=== PATIENT | female | born 1965 | race Caucasian/White ===

== ENCOUNTER 2016-10-12 12:47 | Emergency (ER) | payer MEDICARE, OTHER ==
[2016-10-12] MEDS ORDERED: SODIUM CHLORIDE 0.9% 500 ML IV STA (13:13)
[2016-10-12] MEDS ORDERED: SODIUM CHLORIDE 0.9% 1,000 ML IV STA (13:13)
--- NOTE | 2016-10-12 13:20 | ED ---
General Adult HPI - General Stated complaint: High white count Time Seen by Provider: 10/12/16 13:12 Source: RN notes reviewed, old records reviewed - History of Present Illness Initial comments: This is a 41 and this is a 50-year-old female here for evaluation. This patient comes in for evaluation of weakness, outpatient evaluation, patient's family doctor. Patient denies medical history. Patient was sent in by her family doctor for evaluation of abnormal lab test. - Related Data Home Medications Medication Instructions Recorded Confirmed ALPRAZolam [Xanax] 1 mg PO TID 10/12/16 10/12/16 Atorvastatin Calcium [Lipitor] 10 mg PO HS 10/12/16 10/12/16 Clopidogrel [Plavix] 75 mg PO DAILY 10/12/16 10/12/16 Docusate [Colace] 100 mg PO BID PRN 10/12/16 10/12/16 Ferrous Sulfate [Feosol] 325 mg PO BID 10/12/16 10/12/16 Morphine Sulfate ER [Ms Contin 30 mg PO Q12H 10/12/16 10/12/16 30Mg] Omeprazole 20 mg PO DAILY 10/12/16 10/12/16 Unknown Wound Cream 1 applic TOPICAL DAILY 10/12/16 10/12/16 amLODIPine [Norvasc] 10 mg PO DAILY 10/12/16 10/12/16 metFORMIN HCL [Glucophage] 500 mg PO BID 10/12/16 10/12/16 oxyCODONE-APAP 10-325MG [Percocet 1 tab PO Q4-6H PRN 10/12/16 10/12/16 10-325 mg] Allergies Allergy/AdvReac Type Severity Reaction Status Date / Time No Known Allergies Allergy Verified 10/12/16 15:06 Review of Systems ROS Statement: Those systems with pertinent positive or pertinent negative responses have been documented in the HPI. ROS Other: All systems not noted in ROS Statement are negative. Past Medical History Past Medical History: Diabetes Mellitus, Hypertension Additional Past Medical History / Comment(s): Occlusive vessel disease History of Any Multi-Drug Resistant Organisms: None Reported Past Surgical History: Back Surgery, Section Past Psychological History: No Psychological Hx Reported Smoking Status: Former smoker Past Alcohol Use History: None Reported Past Drug Use History: None Reported General Exam General appearance: alert, in no apparent distress Head exam: Present: atraumatic, normocephalic, normal inspection Eye exam: Present: normal appearance, PERRL, EOMI. Absent: scleral icterus, conjunctival injection, periorbital swelling ENT exam: Present: normal exam, mucous membranes moist Neck exam: Present: normal inspection. Absent: tenderness, meningismus, lymphadenopathy Respiratory exam: Present: normal lung sounds bilaterally. Absent: respiratory distress, wheezes, rales, rhonchi, stridor Cardiovascular Exam: Present: regular rate, normal rhythm, normal heart sounds. Absent: systolic murmur, diastolic murmur, rubs, gallop, clicks GI/Abdominal exam: Present: soft, normal bowel sounds. Absent: distended, tenderness, guarding, rebound, rigid Extremities exam: Present: normal inspection, full ROM, normal capillary refill. Absent: tenderness, pedal edema, joint swelling, calf tenderness Back exam: Present: normal inspection Neurological exam: Present: alert, oriented X3, CN II-XII intact Psychiatric exam: Present: normal affect, normal mood Skin exam: Present: warm, dry, intact, normal color. Absent: rash Course Vital Signs 10/12/16 10/12/16 13:26 15:55 Temperature 98.9 F 98.4 F Pulse Rate 67 89 Respiratory 18 18 Rate Blood Pressure 209/89 156/76 O2 Sat by Pulse 98 97 Oximetry - Reevaluation(s) Reevaluation #1: 10/12/16 13:20 Sheryl spoke with family doctor, patient does have abnormal lab tests, elevated white count, Reevaluation #2: Patient has no complaints, unhappy to be in the hospital at this time, states she's had a long complicated recent medical history is spent more time and also should like to EKG Findings - EKG Comments: EKG Findings:: EKG shows sinus tach rate of 102, MS 160, QRS 76, QTC 448 Medical Decision Making - Medical Decision Making 50 female here for evaluation of possible abdominal abscess leukocytosis, patient's white count appears to be normal here in the emergency room. Patient herself has no complaints would like to be discharged home - Lab Data Result diagrams: 10/12/16 14:10 10/12/16 15:03 Lab Results 10/12/16 10/12/16 10/12/16 Range/Units 14:10 15:03 15:03 WBC 12.6 H (3.8-10.6) k/uL RBC 4.65 (3.80-5.40) m/uL Hgb 13.4 (11.4-16.0) gm/dL Hct 42.0 (34.0-46.0) % MCV 90.4 (80.0-100.0) fL MCH 28.8 (25.0-35.0) pg MCHC 31.8 (31.0-37.0) g/dL RDW 14.1 (11.5-15.5) % Plt Count 314 (150-450) k/uL Neutrophils % 70 % Lymphocytes % 17 % Monocytes % 4 % Eosinophils % 5 % Basophils % 1 % Neutrophils # 8.9 H (1.3-7.7) k/uL Lymphocytes # 2.2 (1.0-4.8) k/uL Monocytes # 0.5 (0-1.0) k/uL Eosinophils # 0.6 (0-0.7) k/uL Basophils # 0.1 (0-0.2) k/uL PT 10.7 (9.0-12.0) sec INR 1.1 (<1.1) APTT 21.9 L (22.0-30.0) sec Sodium 142 (137-145) mmol/L Potassium 4.2 (3.5-5.1) mmol/L Chloride 110 H (98-107) mmol/L Carbon Dioxide 21 L (22-30) mmol/L Anion Gap 11 mmol/L BUN 21 H (7-17) mg/dL Creatinine 0.50 L (0.52-1.04) mg/dL Est GFR (MDRD) Af Amer >60 (>60 ml/min/1.73 sqM) Est GFR (MDRD) Non-Af >60 (>60 ml/min/1.73 sqM) Glucose 203 H (74-99) mg/dL Plasma Lactic Acid Alexandr (0.7-2.0) mmol/L Calcium 9.4 (8.4-10.2) mg/dL Phosphorus 3.3 (2.5-4.5) mg/dL Magnesium 1.3 L (1.6-2.3) mg/dL Total Bilirubin 0.4 (0.2-1.3) mg/dL AST 25 (14-36) U/L ALT 34 (9-52) U/L Alkaline Phosphatase 127 H (38-126) U/L Total Creatine Kinase (30-135) U/L CK-MB (CK-2) (0.0-2.4) ng/mL CK-MB (CK-2) Rel Index Troponin I (0.000-0.034) ng/mL Total Protein 7.9 (6.3-8.2) g/dL Albumin 3.9 (3.5-5.0) g/dL Lipase 216 (23-300) U/L Serum Alcohol <10 mg/dL Acetone, Qual Negative (Negative) 10/12/16 10/12/16 Range/Units 15:03 15:03 WBC (3.8-10.6) k/uL RBC (3.80-5.40) m/uL Hgb (11.4-16.0) gm/dL Hct (34.0-46.0) % MCV (80.0-100.0) fL MCH (25.0-35.0) pg MCHC (31.0-37.0) g/dL RDW (11.5-15.5) % Plt Count (150-450) k/uL Neutrophils % % Lymphocytes % % Monocytes % % Eosinophils % % Basophils % % Neutrophils # (1.3-7.7) k/uL Lymphocytes # (1.0-4.8) k/uL Monocytes # (0-1.0) k/uL Eosinophils # (0-0.7) k/uL Basophils # (0-0.2) k/uL PT (9.0-12.0) sec INR (<1.1) APTT (22.0-30.0) sec Sodium (137-145) mmol/L Potassium (3.5-5.1) mmol/L Chloride (98-107) mmol/L Carbon Dioxide (22-30) mmol/L Anion Gap mmol/L BUN (7-17) mg/dL Creatinine (0.52-1.04) mg/dL Est GFR (MDRD) Af Amer (>60 ml/min/1.73 sqM) Est GFR (MDRD) Non-Af (>60 ml/min/1.73 sqM) Glucose (74-99) mg/dL Plasma Lactic Acid Alexandr 1.3 (0.7-2.0) mmol/L Calcium (8.4-10.2) mg/dL Phosphorus (2.5-4.5) mg/dL Magnesium (1.6-2.3) mg/dL Total Bilirubin (0.2-1.3) mg/dL AST (14-36) U/L ALT (9-52) U/L Alkaline Phosphatase (38-126) U/L Total Creatine Kinase 26 L (30-135) U/L CK-MB (CK-2) 1.1 (0.0-2.4) ng/mL CK-MB (CK-2) Rel Index 4.2 Troponin I 0.089 H* (0.000-0.034) ng/mL Total Protein (6.3-8.2) g/dL Albumin (3.5-5.0) g/dL Lipase (23-300) U/L Serum Alcohol mg/dL Acetone, Qual (Negative) - Radiology Data Radiology results: report reviewed (X-ray left lower extremities negative for acute disease, no gas no air), image reviewed Disposition Clinical Impression: Encounter for wound re-check Disposition: HOME SELF-CARE Condition: Good Instructions: Leukocytosis (ED) Referrals: Hilaria Thakkar MD [Primary Care Provider] - 1-2 days
[2016-10-12 13:31] VITALS: RESP 18
[2016-10-12 14:19] LABS: Basophils # (A) 0.1 k/uL (0-0.2); Basophils % (A) 1 %; CH 29.4; CHCM 32.6; Eosinophils # (A) 0.6 k/uL (0-0.7); Eosinophils % (A) 5 %; HDW 2.55; HGB 13.4 gm/dL (11.4-16.0); Luc # (Auto) 0.31; Luc % (Auto) 3; Lymphocytes # (A) 2.2 k/uL (1.0-4.8); Lymphocytes % (A) 17 %; MCH 28.8 pg (25.0-35.0); MCHC 31.8 g/dL (31.0-37.0); MCV 90.4 fL (80.0-100.0); Mean Platelet Volume 7.6; Monocytes # (A) 0.5 k/uL (0-1.0); Monocytes % (A) 4 %; Neutrophils # (A) 8.9 k/uL (1.3-7.7); Neutrophils % (A) 70 %; RBC 4.65 m/uL (3.80-5.40); RDW 14.1 % (11.5-15.5); WBC 12.6 k/uL (3.8-10.6); WBC (Perox) 12.65
[2016-10-12] MEDS ORDERED: ONDANSETRON 4 MG/2 ML VIAL IVP STA (14:34)
[2016-10-12] MEDS ORDERED: MORPHINE SULFATE 4 MG/ML SYRINGE IVP STA (14:34)
[2016-10-12] MEDS ORDERED: diphenhydrAMINE 50 MG/ML 1 ML VIAL IVP STA (15:08)
--- NOTE | 2016-10-12 15:08 | XR ---
EXAMINATION TYPE: XR tibia fibula LT DATE OF EXAM: 10/12/2016 2:57 PM CLINICAL HISTORY: Fever, pain, leukocytosis. TECHNIQUE: Two views of the left leg are obtained. COMPARISON: None. FINDINGS: There is overlying gauze or bandage material seen which is noted to lower radiographic sen sitivity for evaluation of fine anatomic detail. There is no acute fracture or dislocation seen in th e left tibia or fibula. No suspicious cortical destruction or periosteal reaction is seen. The left k nee and ankle joints appear within normal limits. Lucency in the posterior soft tissue midshaft level is noted, this could be product of overlying bandage material, gas forming infection cannot be exclu ded. Differential includes necrotizing fasciitis. Clinical correlation advised. IMPRESSION: As above.
[2016-10-12 15:27] LABS: INR 1.1 (<1.1); Partial Thromboplastin Time 21.9 sec (22.0-30.0); Prothrombin Time 10.7 sec (9.0-12.0)
[2016-10-12 15:36] LABS: ALT 34 U/L (9-52); AST 25 U/L (14-36); Alcohol <10 mg/dL; Alkaline Phosphatase 127 U/L (38-126); Anion Gap 11 mmol/L; Blood Urea Nitrogen 21 mg/dL (7-17); Calcium 9.4 mg/dL (8.4-10.2); Carbon Dioxide 21 mmol/L (22-30); Chloride 110 mmol/L (98-107); Glucose 203 mg/dL (74-99); Magnesium 1.3 mg/dL (1.6-2.3); Non-African American GFR(MDRD) >60 (>60 ml/min/1.73 sqM); Phosphorous 3.3 mg/dL (2.5-4.5); Potassium 4.2 mmol/L (3.5-5.1); Sodium 142 mmol/L (137-145); Total Bilirubin 0.4 mg/dL (0.2-1.3); Total Protein 7.9 g/dL (6.3-8.2)
[2016-10-12 15:55] LABS: Creatine Kinase MB 1.1 ng/mL (0.0-2.4)
[2016-10-12 15:57] VITALS: BP 156/76; PULSE 89; TEMP 98.4
[2016-10-12 16:00] LABS: Troponin I 0.089 ng/mL (0.000-0.034)
== END 2016-10-12 15:56 | disposition home or self-care (01) ==
LOC: EC 12:47
DX: D72.829 Elevated white blood cell count, unspecified (principal); R00.0 Tachycardia, unspecified; I10 Essential (primary) hypertension; E11.9 Type 2 diabetes mellitus without complications; Z87.891 Personal history of nicotine dependence; Z79.02 Long term (current) use of antithrombotics/antiplatelets; Z79.899 Other long term (current) drug therapy; Z79.84 Long term (current) use of oral hypoglycemic drugs
CPT/HCPCS: 36415; 80053; 82550; 82553; 82009; 83605; 83690; 83735; 84100; 84484; 85025; 85610; 85730; 80320; 87502; 73590; 99284; 96374; 96375 ×2; 96361 ×2; J2270; J1200; J2405; 93005

== ENCOUNTER 2016-10-20 12:59 | Emergency (ER) | payer MEDICARE, OTHER ==
[2016-10-20 14:04] LABS: Basophils # (A) 0.1 k/uL (0-0.2); Basophils % (A) 1 %; CH 28.4; Eosinophils # (A) 0.2 k/uL (0-0.7); Eosinophils % (A) 1 %; HCT 42.4 % (34.0-46.0); HDW 2.59; HGB 13.5 gm/dL (11.4-16.0); Luc # (Auto) 0.31; Luc % (Auto) 3; Lymphocytes % (A) 17 %; MCH 28.4 pg (25.0-35.0); MCHC 31.9 g/dL (31.0-37.0); MCV 89.1 fL (80.0-100.0); Mean Platelet Volume 6.7; Monocytes # (A) 0.6 k/uL (0-1.0); Monocytes % (A) 6 %; Neutrophils # (A) 8.3 k/uL (1.3-7.7); Neutrophils % (A) 73 %; RBC 4.76 m/uL (3.80-5.40); RDW 13.8 % (11.5-15.5); WBC 11.4 k/uL (3.8-10.6); WBC (Perox) 11.17
[2016-10-20 14:12] LABS: Partial Thromboplastin Time 22.5 sec (22.0-30.0)
[2016-10-20 14:14] LABS: Prothrombin Time 10.2 sec (9.0-12.0)
--- NOTE | 2016-10-20 14:22 | ED ---
General Adult HPI - General Chief complaint: Arrhythmia/Palpitations Stated complaint: Chest pain sent by PCP Time Seen by Provider: 10/20/16 13:51 Source: patient, RN notes reviewed, old records reviewed Mode of arrival: wheelchair Limitations: no limitations - History of Present Illness Initial comments: This is a 51-year-old female the ER for evaluation of outpatient abnormal lab test. Patient is pre-K medical history [facility] has a recent with multiple hospital admissions and prolonged hospital stay. Patient was fitted for abnormal lab has been sure what that test is. Thoughts are myoglobin elevated white count. Otherwise patient's astigmatic is no complaints - Related Data Home Medications Medication Instructions Recorded Confirmed ALPRAZolam [Xanax] 1 mg PO TID 10/12/16 10/20/16 Atorvastatin Calcium [Lipitor] 10 mg PO HS 10/12/16 10/20/16 Clopidogrel [Plavix] 75 mg PO DAILY 10/12/16 10/20/16 Ferrous Sulfate [Feosol] 325 mg PO BID 10/12/16 10/20/16 Morphine Sulfate ER [Ms Contin 30 mg PO Q12H 10/12/16 10/20/16 30Mg] Omeprazole 20 mg PO DAILY 10/12/16 10/20/16 amLODIPine [Norvasc] 10 mg PO DAILY 10/12/16 10/20/16 metFORMIN HCL [Glucophage] 500 mg PO BID 10/12/16 10/20/16 oxyCODONE-APAP 10-325MG [Percocet 1 tab PO Q4-6H PRN 10/12/16 10/20/16 10-325 mg] Metoprolol Tartrate [Metoprolol 25 mg PO BID 10/20/16 10/20/16 Tartrate] Silver Sulfadiazine [Silver 1 applic TOPICAL DAILY 10/20/16 10/20/16 Sulfadiazine] Previous Rx's Medication Instructions Recorded HYDROcodone/APAP 5-325MG [[place] 1 tab PO Q6HR PRN #30 tab 10/20/16 5-325] Magnesium Oxide 400 mg PO DAILY #30 tablet 10/20/16 Allergies Allergy/AdvReac Type Severity Reaction Status Date / Time No Known Allergies Allergy Verified 10/20/16 13:30 Review of Systems ROS Statement: Those systems with pertinent positive or pertinent negative responses have been documented in the HPI. ROS Other: All systems not noted in ROS Statement are negative. Past Medical History Past Medical History: Diabetes Mellitus, Hypertension Additional Past Medical History / Comment(s): Occlusive vessel disease, blood clot in left lower leg, infection left lower leg History of Any Multi-Drug Resistant Organisms: None Reported Past Surgical History: Back Surgery, Section, Coronary Bypass/CABG Past Psychological History: No Psychological Hx Reported Smoking Status: Former smoker Past Alcohol Use History: None Reported Past Drug Use History: None Reported General Exam - General Exam Comments Initial Comments: Leg wound is clean dry and intact Limitations: no limitations General appearance: alert, in no apparent distress Head exam: Present: atraumatic, normocephalic, normal inspection Eye exam: Present: normal appearance, PERRL, EOMI. Absent: scleral icterus, conjunctival injection, periorbital swelling ENT exam: Present: normal exam, mucous membranes moist Neck exam: Present: normal inspection. Absent: tenderness, meningismus, lymphadenopathy Respiratory exam: Present: normal lung sounds bilaterally. Absent: respiratory distress, wheezes, rales, rhonchi, stridor Cardiovascular Exam: Present: regular rate, normal rhythm, normal heart sounds. Absent: systolic murmur, diastolic murmur, rubs, gallop, clicks GI/Abdominal exam: Present: soft, normal bowel sounds. Absent: distended, tenderness, guarding, rebound, rigid Extremities exam: Present: normal inspection, full ROM, normal capillary refill. Absent: tenderness, pedal edema, joint swelling, calf tenderness Back exam: Present: normal inspection Neurological exam: Present: alert, oriented X3, CN II-XII intact Psychiatric exam: Present: normal affect, normal mood Skin exam: Present: warm, dry, intact, normal color. Absent: rash Course Vital Signs 10/20/16 10/20/16 10/20/16 13:00 13:20 15:22 Temperature 98.1 F 96.9 F L Pulse Rate 79 73 Pulse Rate [ 78 Right Radial] Respiratory 17 18 Rate Blood Pressure 188/79 138/90 O2 Sat by Pulse 97 93 L Oximetry EKG Findings - EKG Comments: EKG Findings:: EKG shows normal sinus rhythm rate of 77, GA 144, QRS 108, QTC 409 Medical Decision Making - Medical Decision Making 51 seen at ER for evaluation, reevaluation of possible operation normal lab tests. Patient's laboratory from back normal, patient will be discharged home, patient's asymptomatic - Lab Data Result diagrams: 10/20/16 13:29 10/20/16 13:29 Lab Results 10/20/16 10/20/16 10/20/16 Range/Units 13:29 13:29 13:29 WBC 11.4 H (3.8-10.6) k/uL RBC 4.76 (3.80-5.40) m/uL Hgb 13.5 (11.4-16.0) gm/dL Hct 42.4 (34.0-46.0) % MCV 89.1 (80.0-100.0) fL MCH 28.4 (25.0-35.0) pg MCHC 31.9 (31.0-37.0) g/dL RDW 13.8 (11.5-15.5) % Plt Count 342 (150-450) k/uL Neutrophils % 73 % Lymphocytes % 17 % Monocytes % 6 % Eosinophils % 1 % Basophils % 1 % Neutrophils # 8.3 H (1.3-7.7) k/uL Lymphocytes # 2.0 (1.0-4.8) k/uL Monocytes # 0.6 (0-1.0) k/uL Eosinophils # 0.2 (0-0.7) k/uL Basophils # 0.1 (0-0.2) k/uL PT (9.0-12.0) sec INR (<1.1) APTT (22.0-30.0) sec Sodium 137 (137-145) mmol/L Potassium 5.0 (3.5-5.1) mmol/L Chloride 104 (98-107) mmol/L Carbon Dioxide 21 L (22-30) mmol/L Anion Gap 12 mmol/L BUN 18 H (7-17) mg/dL Creatinine 0.62 (0.52-1.04) mg/dL Est GFR (MDRD) Af Amer >60 (>60 ml/min/1.73 sqM) Est GFR (MDRD) Non-Af >60 (>60 ml/min/1.73 sqM) Glucose 385 H (74-99) mg/dL Calcium 10.1 (8.4-10.2) mg/dL Phosphorus 3.9 (2.5-4.5) mg/dL Magnesium 1.1 L (1.6-2.3) mg/dL Total Bilirubin 0.5 (0.2-1.3) mg/dL AST 28 (14-36) U/L ALT 24 (9-52) U/L Alkaline Phosphatase 115 (38-126) U/L Total Creatine Kinase <20 L (30-135) U/L CK-MB (CK-2) 1.2 (0.0-2.4) ng/mL CK-MB (CK-2) Rel Index 0.0 Troponin I <0.012 (0.000-0.034) ng/mL Total Protein 7.4 (6.3-8.2) g/dL Albumin 3.6 (3.5-5.0) g/dL 10/20/16 Range/Units 13:29 WBC (3.8-10.6) k/uL RBC (3.80-5.40) m/uL Hgb (11.4-16.0) gm/dL Hct (34.0-46.0) % MCV (80.0-100.0) fL MCH (25.0-35.0) pg MCHC (31.0-37.0) g/dL RDW (11.5-15.5) % Plt Count (150-450) k/uL Neutrophils % % Lymphocytes % % Monocytes % % Eosinophils % % Basophils % % Neutrophils # (1.3-7.7) k/uL Lymphocytes # (1.0-4.8) k/uL Monocytes # (0-1.0) k/uL Eosinophils # (0-0.7) k/uL Basophils # (0-0.2) k/uL PT 10.2 (9.0-12.0) sec INR 1.0 (<1.1) APTT 22.5 (22.0-30.0) sec Sodium (137-145) mmol/L Potassium (3.5-5.1) mmol/L Chloride (98-107) mmol/L Carbon Dioxide (22-30) mmol/L Anion Gap mmol/L BUN (7-17) mg/dL Creatinine (0.52-1.04) mg/dL Est GFR (MDRD) Af Amer (>60 ml/min/1.73 sqM) Est GFR (MDRD) Non-Af (>60 ml/min/1.73 sqM) Glucose (74-99) mg/dL Calcium (8.4-10.2) mg/dL Phosphorus (2.5-4.5) mg/dL Magnesium (1.6-2.3) mg/dL Total Bilirubin (0.2-1.3) mg/dL AST (14-36) U/L ALT (9-52) U/L Alkaline Phosphatase (38-126) U/L Total Creatine Kinase (30-135) U/L CK-MB (CK-2) (0.0-2.4) ng/mL CK-MB (CK-2) Rel Index Troponin I (0.000-0.034) ng/mL Total Protein (6.3-8.2) g/dL Albumin (3.5-5.0) g/dL Disposition Clinical Impression: Encounter for wound re-check Disposition: HOME SELF-CARE Condition: Good Instructions: Chronic Wound Care (ED), Acute Wound Care (ED) Prescriptions: HYDROcodone/APAP 5-325MG [[place] 5-325] 1 tab PO Q6HR PRN #30 tab PRN Reason: Pain Magnesium Oxide 400 mg PO DAILY #30 tablet Referrals: Hilaria Thakkar MD [Primary Care Provider] - 1-2 days
[2016-10-20 14:24] LABS: ALT 24 U/L (9-52); AST 28 U/L (14-36); Alkaline Phosphatase 115 U/L (38-126); Anion Gap 12 mmol/L; Blood Urea Nitrogen 18 mg/dL (7-17); Calcium 10.1 mg/dL (8.4-10.2); Carbon Dioxide 21 mmol/L (22-30); Chloride 104 mmol/L (98-107); Glucose 385 mg/dL (74-99); Magnesium 1.1 mg/dL (1.6-2.3); Non-African American GFR(MDRD) >60 (>60 ml/min/1.73 sqM); Phosphorous 3.9 mg/dL (2.5-4.5); Sodium 137 mmol/L (137-145); Total Bilirubin 0.5 mg/dL (0.2-1.3); Total Protein 7.4 g/dL (6.3-8.2)
[2016-10-20 14:26] LABS: Creatine Kinase <20 U/L (30-135)
[2016-10-20 14:39] LABS: Creatine Kinase MB 1.2 ng/mL (0.0-2.4); Troponin I <0.012 ng/mL (0.000-0.034)
[2016-10-20] MEDS ORDERED: LORazepam 2 MG/ML SYRINGE IV STA (14:41)
[2016-10-20] MEDS ORDERED: HYDROmorphone 2 MG/ML 1 ML SYRINGE IVP STA (14:41)
[2016-10-20] MEDS ORDERED: MAGNESIUM OXIDE 400 MG TAB PO STA (14:41)
[2016-10-20 15:23] VITALS: BP 138/90; PULSE 73; RESP 18; TEMP 96.9
== END 2016-10-20 15:44 | disposition home or self-care (01) ==
LOC: EC 12:59
DX: R00.2 Palpitations (principal); Z48.01 Encounter for change or removal of surgical wound dressing; I10 Essential (primary) hypertension; E11.9 Type 2 diabetes mellitus without complications; Z86.718 Personal history of other venous thrombosis and embolism; Z95.1 Presence of aortocoronary bypass graft; Z79.02 Long term (current) use of antithrombotics/antiplatelets; Z79.84 Long term (current) use of oral hypoglycemic drugs; Z87.891 Personal history of nicotine dependence; Z79.899 Other long term (current) drug therapy
CPT/HCPCS: 96374 ×2; 96375 ×2; 93005; 99285 ×2; 36415; 80053; 82550; 82553; 83735; 84100; 84484; 85025; 85610; 85730; J2060; J1170

== ENCOUNTER 2016-11-22 02:46 | Emergency (ER) | payer MEDICARE, OTHER ==
[2016-11-22 02:54] VITALS: RESP 18
[2016-11-22] MEDS ORDERED: SODIUM CHLORIDE 0.9% 500 ML IV ONE (03:00)
[2016-11-22] MEDS ORDERED: FAMOTIDINE 20 MG/2 ML VIAL IV STA (03:00)
[2016-11-22] MEDS ORDERED: methylPREDNISolone SOD SUCCI 125 MG/2 ML VIAL IV STA (03:00)
--- NOTE | 2016-11-22 03:02 | ED ---
General Adult HPI - General Chief complaint: Skin/Abscess/Foreign Body Stated complaint: allergic reaction Time Seen by Provider: 11/22/16 02:50 Source: patient, family, EMS, RN notes reviewed Mode of arrival: EMS Limitations: no limitations - History of Present Illness Initial comments: This is a 51-year-old female who comes emergency Department after she woke up with the hives all over her body. Patient states she doesn't believe she took anything different last night but she woke up with hives on her abdomen and back arms and legs. Patient states she's had no difficulty breathing in her throat does not feel like it is closing. Patient denies any new medication she denies any new perfumes or soaps. Patient denies any fever or chills patient denies any cough. Patient denies chest pain or palpitations. Patient denies abdominal pain patient denies nausea vomiting or diarrhea. Patient states she called EMS they gave her Benadryl in the ankles and she feels better already. - Related Data Home Medications Medication Instructions Recorded Confirmed ALPRAZolam [Xanax] 1 mg PO TID 10/12/16 11/22/16 Atorvastatin Calcium [Lipitor] 10 mg PO HS 10/12/16 11/22/16 Clopidogrel [Plavix] 75 mg PO DAILY 10/12/16 11/22/16 Ferrous Sulfate [Feosol] 325 mg PO BID 10/12/16 11/22/16 Morphine Sulfate ER [Ms Contin 30 mg PO Q12H 10/12/16 11/22/16 30Mg] Omeprazole 20 mg PO DAILY 10/12/16 11/22/16 amLODIPine [Norvasc] 10 mg PO DAILY 10/12/16 11/22/16 metFORMIN HCL [Glucophage] 1,000 mg PO BID 10/12/16 11/22/16 oxyCODONE-APAP 10-325MG [Percocet 1 tab PO Q4-6H PRN 10/12/16 11/22/16 10-325 mg] Metoprolol Tartrate [Metoprolol 25 mg PO BID 10/20/16 11/22/16 Tartrate] Silver Sulfadiazine [Silver 1 applic TOPICAL DAILY 10/20/16 11/22/16 Sulfadiazine] Previous Rx's Medication Instructions Recorded HYDROcodone/APAP 5-325MG [[place] 1 tab PO Q6HR PRN #30 tab 10/20/16 5-325] Magnesium Oxide 400 mg PO DAILY #30 tablet 10/20/16 predniSONE 40 mg PO DAILY #8 tab 11/22/16 Allergies Allergy/AdvReac Type Severity Reaction Status Date / Time No Known Allergies Allergy Verified 11/22/16 02:58 Review of Systems ROS Statement: Those systems with pertinent positive or pertinent negative responses have been documented in the HPI. ROS Other: All systems not noted in ROS Statement are negative. Past Medical History Past Medical History: Diabetes Mellitus, Fibromyalgia, Hypertension Additional Past Medical History / Comment(s): Occlusive vessel disease, blood clot in left lower leg, infection left lower leg. 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 Past Anesthesia/Blood Transfusion Reactions: No Reported Reaction Past Psychological History: Anxiety Smoking Status: Former smoker Past Alcohol Use History: None Reported Additional Past Alcohol Use History / Comment(s): Smoked 1/2 PPd for 25 yrs, quit 09/2016 Past Drug Use History: None Reported, Heroin - Past Family History Mother Family Medical History: No Reported History General Exam - General Exam Comments Initial Comments: GENERAL: Patient is well-developed and well-nourished. Patient is nontoxic and well- hydrated and is in mild distress. ENT: Neck is soft and supple. No significant lymphadenopathy is noted. Oropharynx is clear. Moist mucous membranes. Neck has full range of motion without eliciting any pain. EYES: The sclera were anicteric and conjunctiva were pink and moist. Extraocular movements were intact and pupils were equal round and reactive to light. Eyelids were unremarkable. PULMONARY: Unlabored respirations. Good breath sounds bilaterally. No audible rales rhonchi or wheezing was noted. CARDIOVASCULAR: There is a regular rate and rhythm without any murmurs gallops or rubs. ABDOMEN: Soft and nontender with normal bowel sounds. No palpable organomegaly was noted. There is no palpable pulsatile mass. SKIN: Patient has hives all over her chest abdomen back and extremities. NEUROLOGIC: Patient is alert and oriented x3. Cranial nerves II through XII are grossly intact. Motor and sensory are also intact. Normal speech, volume and content. Symmetrical smile. MUSCULOSKELETAL: Patient has a wound VAC on the left leg from a fasciotomy she had for a blood clot LYMPHATICS: No significant lymphadenopathy is noted PSYCHIATRIC: Normal psychiatric evaluation. Limitations: no limitations Course Vital Signs 11/22/16 11/22/16 02:50 03:08 Temperature 97.7 F Pulse Rate 78 69 Respiratory 18 18 Rate Blood Pressure 129/60 151/64 O2 Sat by Pulse 99 96 Oximetry Medical Decision Making - Medical Decision Making I went back into reevaluate the patient she stated she was feeling considerably better and the rash was almost completely gone. There was a little bit a hive left on the lower abdomen so I did give the patient a little bit more Benadryl. Disposition Clinical Impression: Allergic reaction Disposition: HOME SELF-CARE Instructions: Urticaria (ED) Additional Instructions: Patient should take Benadryl when necessary for itching and hives. Patient should take redness on as prescribed. Prescriptions: predniSONE 40 mg PO DAILY #8 tab Referrals: Hilaria Thakkar MD [Primary Care Provider] - 1-2 days Time of Disposition: 03:57
[2016-11-22] MEDS ORDERED: diphenhydrAMINE 50 MG/ML 1 ML VIAL IVP STA (03:58)
[2016-11-22 04:09] VITALS: BP 159/69; PULSE 67; TEMP 98.9
== END 2016-11-22 04:27 | disposition home or self-care (01) ==
LOC: SUPCPDRO 02:46 → EC 02:46
DX: L50.0 Allergic urticaria (principal); I10 Essential (primary) hypertension; E11.9 Type 2 diabetes mellitus without complications; Z87.891 Personal history of nicotine dependence; Z79.02 Long term (current) use of antithrombotics/antiplatelets; Z79.84 Long term (current) use of oral hypoglycemic drugs; Z79.899 Other long term (current) drug therapy
CPT/HCPCS: 99284; 96374; 96375 ×2; 96361; J1200; J2930; 36415; 80053; 83036; 84134; 85027

== ENCOUNTER → 2016-11-22 | Outpatient (CLI) | payer MEDICARE, OTHER ==
[2016-11-22 13:21] LABS: CHCM 30.7; HCT 39.6 % (34.0-46.0); HDW 2.55; HGB 12.2 gm/dL (11.4-16.0); Hypochromasia Slight; MCH 28.3 pg (25.0-35.0); MCHC 30.9 g/dL (31.0-37.0); MCV 91.5 fL (80.0-100.0); Mean Platelet Volume 6.9; RBC 4.32 m/uL (3.80-5.40); RDW 14.5 % (11.5-15.5); WBC 12.2 k/uL (3.8-10.6)
[2016-11-22 14:01] LABS: Hemoglobin A1C 7.7 % (4.2-6.1)
[2016-11-22 14:19] LABS: ALT 42 U/L (9-52); AST 37 U/L (14-36); Alkaline Phosphatase 169 U/L (38-126); Anion Gap 10 mmol/L; Blood Urea Nitrogen 15 mg/dL (7-17); Calcium 8.6 mg/dL (8.4-10.2); Carbon Dioxide 22 mmol/L (22-30); Chloride 104 mmol/L (98-107); Glucose 443 mg/dL (74-99); Non-African American GFR(MDRD) >60 (>60 ml/min/1.73 sqM); Potassium 4.8 mmol/L (3.5-5.1); Sodium 136 mmol/L (137-145); Total Bilirubin 0.3 mg/dL (0.2-1.3); Total Protein 6.9 g/dL (6.3-8.2)
[2016-11-22 14:26] LABS: Prealbumin 8 mg/dL (18-36)
== END | disposition home or self-care (01) ==
LOC: LABWHC1 12:57
PROVIDERS: ATTEND Thoracic Surgery (Cardiothoracic Vascular Surgery)
DX: R22.42 Localized swelling, mass and lump, left lower limb (principal); M79.604 Pain in right leg; M79.605 Pain in left leg
CPT/HCPCS: 36415; 80053; 83036; 84134; 85027

== ENCOUNTER → 2016-12-01 | Outpatient (CLI) | payer MEDICARE, OTHER ==
--- NOTE | 2016-12-01 15:03 | US ---
LOWER EXTREMITY VENOUS INSUFFICIENCY SIDE PERFORMED: Bilateral 1) Color flow is present and patency is documented in the following vessels. No DVT or SVT is noted . ? EIV ? Common Femoral Vein ? Deep Femoral Vein ? Femoral Vein ? Popliteal Vein ? Proximal Calf Veins ? Greater Saph Vein ? Upper Small Saph Vein No reflux seen bilaterally IMPRESSION: NORMAL STUDY.
--- NOTE | 2016-12-06 14:20 | P.ARTDOP ---
Arterial Doppler LOWER EXTREMITY ARTERIAL DOPPLER: DATE OF SERVICE: 12/01/2016 Reason for study: Left calf ulcer. Doppler waveforms: Multiphasic bilaterally throughout.. Pulse volume recording: Mild distal blunting. Pressure gradients: Mild gradients below the knee. Ankle-brachial indices: 0.91 on the right and 0.87 on the left. Toe pressures: 84 on the right, 84 on the left Impression: Mild bilateral femoral popliteal disease.
== END | disposition home or self-care (01) ==
LOC: RADUSWWP 13:54
PROVIDERS: ATTEND Thoracic Surgery (Cardiothoracic Vascular Surgery)
DX: R22.42 Localized swelling, mass and lump, left lower limb (principal)
CPT/HCPCS: 93923; 93970

== ENCOUNTER → 2017-02-07 | Outpatient (CLI) | payer MEDICARE, OTHER | END | disposition home or self-care (01) | LOC: LABWHC1 11:42 | PROVIDERS: ATTEND Thoracic Surgery (Cardiothoracic Vascular Surgery) | DX: E40 Kwashiorkor (principal); E46 Unspecified protein-calorie malnutrition | CPT/HCPCS: 36415; 84134 ==

== ENCOUNTER 2017-02-16 18:29 | Inpatient (IN) | payer MEDICARE, OTHER ==
[2017-02-16] MEDS ORDERED: SODIUM CHLORIDE 0.9% 1,000 ML IV STA ×2 (19:12→21:52)
--- NOTE | 2017-02-16 19:12 | ED ---
General Adult HPI - General Source: patient, RN notes reviewed Mode of arrival: wheelchair Limitations: no limitations <Sweta Leigh - Last Filed: 02/16/17 23:46> <Huber Alicia - Last Filed: 02/17/17 00:13> - General Chief complaint: Abdominal Pain Stated complaint: LUMP ON RT SIDE,VOMITING, LETHARGY, UNABLE TO WALK Time Seen by Provider: 02/16/17 19:04 - History of Present Illness Initial comments: 51-year-old female presents with chief complaint of she states that she just has a hard time keeping her eyes open and then she has a hard time walking and she has this right-sided abdominal pain and she just has not felt right since. Patient is a poor historian. wound VAC to the left leg due to the procedure due to blood clots but states that does not seem to be the problem. Home nurse came today and they stated that she should go to the ER. Patient states that she just does not feel right. Patient states she cannot put her finger on why she does not feel right but she just does not. Patient denies any vomiting with this. She denies any chest pain or shortness of breath any fever or chills. Patient denies any cough cold like symptoms. (Swtea Leigh) - Related Data Home Medications Medication Instructions Recorded Confirmed ALPRAZolam [Xanax] 1 mg PO TID 10/12/16 02/07/17 Atorvastatin Calcium [Lipitor] 10 mg PO HS 10/12/16 02/07/17 Clopidogrel [Plavix] 75 mg PO DAILY 10/12/16 02/07/17 Ferrous Sulfate [Feosol] 325 mg PO BID 10/12/16 02/07/17 Morphine Sulfate ER [Ms Contin 30 mg PO Q12H 10/12/16 02/07/17 30Mg] Omeprazole 20 mg PO DAILY 10/12/16 02/07/17 amLODIPine [Norvasc] 10 mg PO DAILY 10/12/16 02/07/17 metFORMIN HCL [Glucophage] 1,000 mg PO BID 10/12/16 02/07/17 oxyCODONE-APAP 10-325MG [Percocet 1 tab PO Q4-6H PRN 10/12/16 02/07/17 10-325 mg] Metoprolol Tartrate [Metoprolol 25 mg PO BID 10/20/16 02/07/17 Tartrate] Previous Rx's Medication Instructions Recorded Magnesium Oxide 400 mg PO DAILY #30 tablet 10/20/16 Allergies Allergy/AdvReac Type Severity Reaction Status Date / Time No Known Allergies Allergy Verified 02/16/17 19:05 Review of Systems ROS Other: All systems not noted in ROS Statement are negative. <Sweta Leigh - Last Filed: 02/16/17 23:46> ROS Other: All systems not noted in ROS Statement are negative. <Huber Alicia - Last Filed: 02/17/17 00:13> ROS Statement: Those systems with pertinent positive or pertinent negative responses have been documented in the HPI. Past Medical History Past Medical History: Diabetes Mellitus, Hypertension, Hypertension Additional Past Medical History / Comment(s): Occlusive vessel disease, blood clot in left lower leg, infection left lower leg, wound vac to leg History of Any Multi-Drug Resistant Organisms: None Reported, MRSA Date of last positivie culture/infection: 11/15/16 MDRO Source:: TISSUE Past Surgical History: Back Surgery, Section Additional Past Surgical History / Comment(s): Patient has a history of axillobifemoral bypass and subsequent left leg fasciotomy. Past Anesthesia/Blood Transfusion Reactions: No Reported Reaction Past Psychological History: No Psychological Hx Reported Past Drug Use History: None Reported, Heroin - Past Family History Mother Family Medical History: No Reported History <Sweta Leigh - Last Filed: 02/16/17 23:46> General Exam Limitations: no limitations <Sweta Leigh - Last Filed: 02/16/17 23:46> <Huber Alicia - Last Filed: 02/17/17 00:13> - General Exam Comments Initial Comments: General: The patient is awake and alert, in no distress, and does not appear acutely ill. Eye: Pupils are equal, round and reactive to light, extra-ocular movements are intact; there is normal conjunctiva bilaterally. No signs of icterus. Ears, nose, mouth and throat: There are moist mucous membranes and no oral lesions. Neck: The neck is supple, there is no tenderness. Cardiovascular: There is a regular rate and rhythm. No murmur, rub or gallop is appreciated. Respiratory: Lungs are clear to auscultation, respirations are non-labored, breath sounds are equal. No wheezes, stridor, rales, or rhonchi. Gastrointestinal: right lateral aspect of the right upper abdominal wall there does appear to be some tenderness now over area with no erythema. Does appear to be a more firm type surface. Soft, non-distended, non-tender abdomen without masses or organomegaly noted. There is no rebound or guarding present. No CVA tenderness. Bowel sounds are unremarkable. Back: There is no tenderness to palpation in the midline. There is no obvious deformity. No rashes noted. Musculoskeletal: Normal ROM, no tenderness, There is no pedal edema. There is no calf tenderness or swelling. Sensation intact. Pulses equal bilaterally 2+. Neurological: CN II-XII intact, There are no obvious motor or sensory deficits. Coordination appears grossly intact. Speech is normal. Skin: Skin is warm and dry and no rashes or lesions are noted. Psychiatric: Cooperative, appropriate mood & affect, normal judgment. (Sweta Leigh) EKG Findings - EKG Comments: EKG Findings:: normal sinus rhythm 87 bpm, normal axis, no atopy, no S-T depressions or elevations, <Sweta Leigh - Last Filed: 02/16/17 23:46> Medical Decision Making - Lab Data Result diagrams: 02/16/17 20:32 02/16/17 20:32 <Sweta Leigh - Last Filed: 02/16/17 23:46> - Lab Data Result diagrams: 02/16/17 20:32 02/16/17 20:32 <Huber Alicia - Last Filed: 02/17/17 00:13> - Medical Decision Making 51-year-old female presents to the emergency Department what appears to be a mass over the right-sided abdominal wall. Patient's lab work is reviewed that this time 10:00 PM she does appear to meet sepsis criteria. This tenderness of the start for the patient. We will give her 3 L bolus. Patient does appear to be in acute kidney injury as well as patient does appear to be acidotic. Fluids have been started. Patient does have a mildly elevated troponin most likely due to her acute kidney injury. We will check this out now happened will be started at this time. At this time imaging has been reviewed. At this time there is concern for possible infectious process to the right side of the abdominal wall. There is also current concern for pulmonary nodules and infiltrate. Levaquin was added to the patient. Urinary cath was performed however no urine output was received. This could be due to the acute kidney injury versus severe dehydration. At this time we will admit the patient to Dr. Gordon was contacted as well as to the ICU. DR. Frausto per Dr. Gordon's request was contacted via Dr. Alicia regarding the patient's case. At this time we are continuing to hydrate the patient she is going to receive 3 L bolus. Unasyn and Levaquin have been ordered. Multiple attempts have been made for a line at this time we only have one IV ports of access. Dr. Alan will evaluate the patient tonight per his history. We will admit this time pending additional recommendations. (Sweta Leigh) I went in and assess the patient myself and physical exam noted the patient had significant pain in the right lower quadrant which correlated with the CAT scan study. I spoke with Dr. Gordon then again spoke with Dr. Frausto on 2 different occasions he indicated to me that he would be seeing the patient this evening and he will put a central line and the patient. (Huber Alicia) - Lab Data Lab Results 02/16/17 02/16/17 02/16/17 Range/Units 20:30 20:32 20:32 WBC 13.9 H (3.8-10.6) k/uL RBC 5.57 H (3.80-5.40) m/uL Hgb 15.6 (11.4-16.0) gm/dL Hct 49.5 H (34.0-46.0) % MCV 88.9 (80.0-100.0) fL MCH 28.1 (25.0-35.0) pg MCHC 31.6 (31.0-37.0) g/dL RDW 14.0 (11.5-15.5) % Plt Count 264 (150-450) k/uL Neutrophils % (Manual) 85.0 % Band Neutrophils % 10.0 % Lymphocytes % (Manual) 4.0 % Monocytes % (Manual) 1.0 % Neutrophils # (Manual) 13.2 H (1.3-7.7) k/uL Lymphocytes # (Manual) 0.6 L (1.0-4.8) k/uL Monocytes # (Manual) 0.1 (0-1.0) k/uL Nucleated RBCs 0 (0-0) /100 WBC Hypochromasia Slight PT 13.1 H (9.0-12.0) sec INR 1.3 H (<1.2) APTT 21.9 L (22.0-30.0) sec Sodium (137-145) mmol/L Potassium (3.5-5.1) mmol/L Chloride (98-107) mmol/L Carbon Dioxide (22-30) mmol/L Anion Gap mmol/L BUN (7-17) mg/dL Creatinine (0.52-1.04) mg/dL Est GFR (MDRD) Af Amer (>60 ml/min/1.73 sqM) Est GFR (MDRD) Non-Af (>60 ml/min/1.73 sqM) Glucose (74-99) mg/dL Plasma Lactic Acid Alexandr (0.7-2.0) mmol/L Calcium (8.4-10.2) mg/dL Magnesium (1.6-2.3) mg/dL Total Bilirubin (0.2-1.3) mg/dL AST (14-36) U/L ALT (9-52) U/L Alkaline Phosphatase (38-126) U/L Ammonia (<30) umol/L Total Creatine Kinase (30-135) U/L CK-MB (CK-2) (0.0-2.4) ng/mL CK-MB (CK-2) Rel Index Troponin I (0.000-0.034) ng/mL Total Protein (6.3-8.2) g/dL Albumin (3.5-5.0) g/dL Amylase (30-110) U/L Lipase (23-300) U/L Stool Occult Blood Negative (Negative) Salicylates mg/dL Acetaminophen ug/mL Serum Alcohol mg/dL 02/16/17 02/16/17 02/16/17 Range/Units 20:32 20:32 20:32 WBC (3.8-10.6) k/uL RBC (3.80-5.40) m/uL Hgb (11.4-16.0) gm/dL Hct (34.0-46.0) % MCV (80.0-100.0) fL MCH (25.0-35.0) pg MCHC (31.0-37.0) g/dL RDW (11.5-15.5) % Plt Count (150-450) k/uL Neutrophils % (Manual) % Band Neutrophils % % Lymphocytes % (Manual) % Monocytes % (Manual) % Neutrophils # (Manual) (1.3-7.7) k/uL Lymphocytes # (Manual) (1.0-4.8) k/uL Monocytes # (Manual) (0-1.0) k/uL Nucleated RBCs (0-0) /100 WBC Hypochromasia PT (9.0-12.0) sec INR (<1.2) APTT (22.0-30.0) sec Sodium 139 (137-145) mmol/L Potassium 3.8 (3.5-5.1) mmol/L Chloride 103 (98-107) mmol/L Carbon Dioxide 11 L (22-30) mmol/L Anion Gap 25 mmol/L BUN 37 H (7-17) mg/dL Creatinine 4.00 H (0.52-1.04) mg/dL Est GFR (MDRD) Af Amer 14 (>60 ml/min/1.73 sqM) Est GFR (MDRD) Non-Af 12 (>60 ml/min/1.73 sqM) Glucose 314 H (74-99) mg/dL Plasma Lactic Acid Alexandr 9.7 H* (0.7-2.0) mmol/L Calcium 9.0 (8.4-10.2) mg/dL Magnesium 1.4 L (1.6-2.3) mg/dL Total Bilirubin 1.9 H (0.2-1.3) mg/dL AST 93 H (14-36) U/L ALT 46 (9-52) U/L Alkaline Phosphatase 214 H (38-126) U/L Ammonia 14 (<30) umol/L Total Creatine Kinase 898 H (30-135) U/L CK-MB (CK-2) 18.7 H* (0.0-2.4) ng/mL CK-MB (CK-2) Rel Index 2.1 Troponin I 0.079 H* (0.000-0.034) ng/mL Total Protein 7.3 (6.3-8.2) g/dL Albumin 3.3 L (3.5-5.0) g/dL Amylase 73 (30-110) U/L Lipase 75 (23-300) U/L Stool Occult Blood (Negative) Salicylates <1.0 mg/dL Acetaminophen <10.0 ug/mL Serum Alcohol <10 mg/dL Critical Care Time Critical Care Time: Yes Total Critical Care Time: 50 <Sweta Leigh - Last Filed: 02/16/17 23:46> Disposition Time of Disposition: 22:39 Decision Date: 02/16/17 Decision Time: 22:39 <Sweta Leigh - Last Filed: 02/16/17 23:46> <Huber Alicia - Last Filed: 02/17/17 00:13> Clinical Impression: Pulmonary nodule, Pulmonary infiltrate, Severe sepsis, Foreign body of abdominal wall with infection, VILMA (acute kidney injury), Severe dehydration, Altered mental status Disposition: ADMITTED IP TO THIS HOSP Condition: Critical Referrals: Hilaria Thakkar MD [Primary Care Provider] - 1-2 days
[2017-02-16] MEDS ORDERED: RX INFO: IV CONTRAST WAS GIVEN 1 EACH MISC MISCELLANE PRN (20:30)
[2017-02-16] MEDS ORDERED: ACETAMINOPHEN TAB 500 MG TAB PO STA (21:02)
[2017-02-16 21:04] LABS: CH 27.2; CHCM 30.7; HCT 49.5 % (34.0-46.0); HGB 15.6 gm/dL (11.4-16.0); Hypochromasia Slight; Immature Gran Flag Marked; MCH 28.1 pg (25.0-35.0); MCHC 31.6 g/dL (31.0-37.0); MCV 88.9 fL (80.0-100.0); Mean Platelet Volume 7.5; RBC 5.57 m/uL (3.80-5.40); WBC 13.9 k/uL (3.8-10.6); WBC (Perox) 14.41
[2017-02-16 21:09] LABS: ALT 46 U/L (9-52); AST 93 U/L (14-36); Acetaminophen <10.0 ug/mL; Alcohol <10 mg/dL; Alkaline Phosphatase 214 U/L (38-126); Amylase 73 U/L (30-110); Anion Gap 25 mmol/L; Blood Urea Nitrogen 37 mg/dL (7-17); Carbon Dioxide 11 mmol/L (22-30); Chloride 103 mmol/L (98-107); Glucose 314 mg/dL (74-99); Magnesium 1.4 mg/dL (1.6-2.3); Potassium 3.8 mmol/L (3.5-5.1); Salicylate <1.0 mg/dL; Sodium 139 mmol/L (137-145); Total Bilirubin 1.9 mg/dL (0.2-1.3); Total Protein 7.3 g/dL (6.3-8.2)
[2017-02-16 21:10] LABS: INR 1.3 (<1.2); Non-African American GFR(MDRD) 12 (>60 ml/min/1.73 sqM); Partial Thromboplastin Time 21.9 sec (22.0-30.0); Prothrombin Time 13.1 sec (9.0-12.0)
[2017-02-16] MEDS ORDERED: HYDROmorphone 1 MG/ML 1 ML SYRINGE IVP STA (21:21)
[2017-02-16] MEDS ORDERED: SODIUM CHLORIDE 0.9% 2,000 ML IV STA (21:24)
[2017-02-16 21:36] LABS: Creatine Kinase MB 18.7 ng/mL (0.0-2.4); Troponin I 0.079 ng/mL (0.000-0.034)
--- NOTE | 2017-02-16 21:40 | XR ---
EXAMINATION TYPE: XR chest 2V DATE OF EXAM: 02/16/2017 COMPARISON: NONE HISTORY: Chest pain TECHNIQUE: Frontal and lateral views of the chest are obtained. FINDINGS: There is a 5 cm masslike density at the right posterior lung apex. Heart size is normal. T here is no heart failure. There is increased density inferior and posterior to the right, a hilum. Le ft lung appears clear. Bony thorax is intact. There are surgical clips at the right axilla. IMPRESSION: Right upper lobe mass. Consolidation or mass density inferior to the right pulmonary hil um in the superior segment right lower lobe. Comparison with old exams would be helpful. The possibil ity of tumor should be considered.
--- NOTE | 2017-02-16 21:49 | CT ---
EXAMINATION TYPE: CT brain wo con DATE OF EXAM: 02/16/2017 COMPARISON: NONE HISTORY: ALTERED MENTAL STATUS AND ABDOMINAL PAIN. CT DLP: 822.6 mGycm Automated exposure control for dose reduction was used. FINDINGS: Ventricles have normal size. There is no mass effect nor midline shift. There is no sign of intracran ial hemorrhage. The calvarium appears intact. IMPRESSION: NEGATIVE UNENHANCED HEAD CT SCAN.
[2017-02-16] MEDS ORDERED: AMPICILLIN-SULBACTAM 3 GM in SODIUM CHLORIDE 0.9% 100 ML IVPB STA (21:55)
--- NOTE | 2017-02-16 21:55 | CT ---
EXAMINATION TYPE: CT abdomen pelvis wo con DATE OF EXAM: 02/16/2017 COMPARISON: NONE HISTORY: ALTERED MENTAL STATUS AND ABDOMINAL PAIN. CT DLP: 721.5 mGycm Automated exposure control for dose reduction was used. TECHNIQUE: Helical acquisition of images was performed from the lung bases through the pelvis. FINDINGS: There is a 3 cm infiltrate in the right paraspinal right lower lobe. There is no pleural effusion. Liver shows no focal defect. Bile ducts are not dilated. Gallbladder appears normal. Spleen and pancr eas appear normal. Abdominal aorta is atheromatous. There is no adrenal mass. There are multiple bilateral renal calcifications. There is no hydronephros is. Some of the calcifications are vascular. There is no retroperitoneal adenopathy. There is no asci ana. Bladder is empty. There is metal artifact from multilevel lumbar spine fusion surgery. There is a byp ass graft on the right side of the chest that extends across the abdomen to the left femoral artery. Exam is limited by lack of contrast. There is subcutaneous edema on the right side of the abdomen lloyd und the graft. The vagina and the urinary bladder are not well defined. There is possible air in the urinary bladder. There are disc prostheses in the lower lumbar spine. There is mild lumbar kyphotic c urvature. There is no sign of inflammatory change of the appendix. Appendix appears normal. IMPRESSION: BYPASS GRAFT NOTED. ATHEROSCLEROTIC VASCULAR DISEASE. RENAL CALCIFICATION IS PROBABLY MOSTLY VASCULAR . NO HYDRONEPHROSIS. SMALL INFILTRATE IN THE RIGHT LOWER LOBE IS NOT WELL EVALUATED. URINARY BLADDER AND VAGINA ARE NOT WELL DEFINED AND THE POSSIBILITY OF A FISTULA SHOULD BE CONSIDERED . Subcutaneous density on the right side of the abdomen and around the graft that could relate to infec tious process. There are air bubbles also around the graft. Correlation with the surgical history is recommended.
[2017-02-16 22:05] LABS: Add Differential Manual Differential
[2017-02-16 22:09] LABS: Nucleated Red Blood Cells 0 /100 WBC (0-0); Total Cells Counted 100
[2017-02-16] MEDS ORDERED: LEVOFLOXACIN 750MG-D5W PMX 750 MG in DEXTROSE/WATER 1 150ML.BAG IVPB STA (22:21)
[2017-02-16] MEDS ORDERED: LEVOFLOXACIN 750MG-D5W PMX 750 MG in DEXTROSE/WATER 1 150ML.BAG IVPB SCH (22:30)
[2017-02-16] MEDS ORDERED: SODIUM CHLORIDE 0.9% 1,000 ML IV SCH (23:45)
[2017-02-16] MEDS ORDERED: NALOXONE 0.4 MG/ML 1 ML VIAL IV PRN (23:46)
[2017-02-16] MEDS ORDERED: ACETAMINOPHEN TAB 325 MG TAB PO PRN (23:46)
[2017-02-17 01:33] LABS: Amorphous Sediment,Urine Rare /hpf; Appearance,Urine Turbid (Clear); Bacteria,Urine Occasional /hpf; Bilirubin,Urine Negative (Negative); Glucose,Urine (UA) 1+ (Negative); Ketones,Urine Negative (Negative); Leukocyte Esterase,Urine Large (Negative); Mucus,Urine Occasional /hpf; Nitrite,Urine Negative (Negative); PH, Urine 5.5 (5.0-8.0); Particle Count 166917; Protein,Urine 3+ (Negative); RBC,Urine 31 /hpf (0-5); Specific Gravity,Urine 1.019 (1.001-1.035); Squamous Epithelial Cell,Urine 6 /hpf (0-4); UA Billing (MACRO vs. MICRO) MICRO; WBC,Urine 151 /hpf (0-5)
[2017-02-17 01:36] LABS: Troponin I 0.094 ng/mL (0.000-0.034)
[2017-02-17 02:23] LABS: ABG PH 7.26 (7.35-7.45)
[2017-02-17 02:24] LABS: ABG Base Excess -15.2 mmol/L; ABG HCO3 11 mmol/L (21-25); ABG PCO2 24 mmHg (35-45); ABG PO2 86 mmHg (83-108); ABG TCO2 11 mmol/L (19-24)
[2017-02-17] MEDS ORDERED: IV VANCOMYCIN PER PHARMACY 1 EACH MISC MISCELLANE PRN (02:26)
[2017-02-17] MEDS ORDERED: [UNRECOGNIZED DRUG - OTHER] IV SCH ×2 (02:30)
[2017-02-17] MEDS ORDERED: PIPERACILLIN-TAZOBACTAM 3.375 GM VIAL IVPB SCH (02:30)
[2017-02-17] MEDS ORDERED: NOREPINEPHRIN 16 MG-0.9%NS PMX 16 MG/250 ML ML IV SCH (02:30)
[2017-02-17] MEDS ORDERED: DEXTROSE IV SCH ×2 (02:30)
[2017-02-17] MEDS ORDERED: DEXTROSE 5% IN WATER 1,000 ML with SODIUM BICARB (1 MEQ/ML) 150 ML IV SCH (02:34)
[2017-02-17] MEDS ORDERED: ONDANSETRON 4 MG/2 ML VIAL IVP PRN (02:43)
--- NOTE | 2017-02-17 03:04 | P.CON ---
Consult Note - . Consult date: 02/16/17 Assessment/Plan:: Patient Name: Swathi Torres Date of : 67 Patient Status: Inpatient Attending Provider: Elder Gordon Date: 02/16/17 11:00 Initialization Date: 02/16/17 CRITICAL CARE CONSULT - General Source: patient, RN notes reviewed, ED notes reviewed - General Chief complaint: Abdominal Pain, started 2-3 days ago predominantly on the right lower quadrant Stated complaint: LUMP ON RT SIDE,VOMITING, LETHARGY, UNABLE TO WALK Time Seen by Provider: 02/16/17 11;00pm - History of Present Illness Initial comments: 51-year-old female presents with chief complaint of she states that she just has a hard time keeping her eyes open and then she has a hard time walking and she has this right-sided abdominal pain and she just has not felt right since. Patient is a poor historian. wound VAC to the left leg due to the procedure due to blood clots but states that does not seem to be the problem. Home nurse came today and they stated that she should go to the ER. Patient states that she just does not feel right. Patient states she cannot put her finger on why she does not feel right but she just does not. Patient denies any vomiting with this. She denies any chest pain or shortness of breath any fever or chills. Patient denies any cough cold like symptoms. Patient was subsequently evaluated in the emergency department as well as in the ICU review of the data revealed that patient had axillary femoral bypass graft performed by Dr. Rodney a few years ago, chest x-ray EKG computed tomography scan of the head and abdominal CAT scan reviewed as well care plan discussed with the nurses and Dr. ingram ER physician time spent over 75 minutes, of note that while patient was transported from the emergency department into the ICU lost on the single IV which was present in the time that will require emergent central line placement as well as arterial line, patient was noted to her drop in blood pressure is well of note that hemodynamically she was stable in the ED but however on arrival in ICU blood pressure dropped down into the 90s systolic mapping to 60s patient has been morning and continuously complaining abdominal in the right lower quadrant she is somewhat nauseous - Related Data Home Medications Medication Instructions Recorded Confirmed ALPRAZolam [Xanax] 1 mg PO TID 10/12/16 02/07/17 Atorvastatin Calcium [Lipitor] 10 mg PO HS 10/12/16 02/07/17 Clopidogrel [Plavix] 75 mg PO DAILY 10/12/16 02/07/17 Ferrous Sulfate [Feosol] 325 mg PO BID 10/12/16 02/07/17 Morphine Sulfate ER [Ms Contin 30 mg PO Q12H 10/12/16 02/07/17 30Mg] Omeprazole 20 mg PO DAILY 10/12/16 02/07/17 amLODIPine [Norvasc] 10 mg PO DAILY 10/12/16 02/07/17 metFORMIN HCL [Glucophage] 1,000 mg PO BID 10/12/16 02/07/17 oxyCODONE-APAP 10-325MG [Percocet 1 tab PO Q4-6H PRN 10/12/16 02/07/17 10-325 mg] Metoprolol Tartrate [Metoprolol 25 mg PO BID 10/20/16 02/07/17 Tartrate] Previous Rx's Medication Instructions Recorded Magnesium Oxide 400 mg PO DAILY #30 tablet 10/20/16 Allergies Allergy/AdvReac Type Severity Reaction Status Date / Time No Known Allergies Allergy Verified 02/16/17 19:05 Review of Systems ROS Other: All systems not noted in ROS Statement are negative. ROS Statement: Those systems with pertinent positive or pertinent negative responses have been documented in the HPI. Past Medical History Past Medical History: Diabetes Mellitus, Hypertension, Hypertension, peripheral arterial disease Additional Past Medical History / Comment(s): Occlusive vessel disease, blood clot in left lower leg, infection left lower leg, wound vac to leg, patient has a history of axillary bifemoral graft History of Any Multi-Drug Resistant Organisms: None Reported, MRSA Date of last positivie culture/infection: 11/15/16 MDRO Source:: TISSUE Past Surgical History: Back Surgery, Section Additional Past Surgical History / Comment(s): Patient has a history of axillobifemoral bypass and subsequent left leg fasciotomy. Past Anesthesia/Blood Transfusion Reactions: No Reported Reaction Past Psychological History: No Psychological Hx Reported Past Drug Use History: None Reported, Heroin - Past Family History Mother Family Medical History: No Reported History <Sweta Leigh - Last Filed: 02/16/17 23:46> General Exam Limitations: no limitations <Sweta Leigh - Last Filed: 02/16/17 23:46> <Huber Alicia - Last Filed: 02/17/17 00:13> - General Exam Comments Initial Comments: General: The patient is awake and alert, in no distress, and does not appear acutely ill. Eye: Pupils are equal, round and reactive to light, extra-ocular movements are intact; there is normal conjunctiva bilaterally. No signs of icterus. Ears, nose, mouth and throat: There are moist mucous membranes and no oral lesions. Neck: The neck is supple, there is no tenderness. Cardiovascular: There is a regular rate and rhythm. No murmur, rub or gallop is appreciated. Respiratory: Lungs are clear to auscultation, respirations are non-labored, breath sounds are equal. No wheezes, stridor, rales, or rhonchi. Gastrointestinal: right lateral aspect of the right upper abdominal wall there does appear to be some tenderness now over area with no erythema. Slightly firm, but tenderness present Soft, non-distended, non-tender abdomen without masses or organomegaly noted. There is no rebound or guarding present. No CVA tenderness. Bowel sounds are unremarkable. Back: There is no tenderness to palpation in the midline. There is no obvious deformity. No rashes noted. Musculoskeletal: Normal ROM, no tenderness, There is no pedal edema. There is no calf tenderness or swelling. Sensation intact. Pulses equal bilaterally 2+. The wound VAC in the left lower extremity appears to be intact no surrounding the redness and/or or, inflammatory changes were seen Neurological: CN II-XII intact, There are no obvious motor or sensory deficits. Coordination appears grossly intact. Speech is normal. Skin: Skin is warm and dry and no rashes or lesions are noted. Psychiatric: Cooperative, appropriate mood & affect, normal judgment. EKG Findings - EKG Comments: EKG Findings:: normal sinus rhythm 87 bpm, normal axis, no atopy, no S-T depressions or elevations, <Sweta Leigh - Last Filed: 02/16/17 23:46> Medical Decision Making - Lab Data Result diagrams: 02/16/17 20:32 02/16/17 20:32 <Sweta Leigh - Last Filed: 02/16/17 23:46> - Lab Data Lab Results 02/16/17 02/16/17 02/16/17 Range/Units 20:30 20:32 20:32 WBC 13.9 H (3.8-10.6) k/uL RBC 5.57 H (3.80-5.40) m/uL Hgb 15.6 (11.4-16.0) gm/dL Hct 49.5 H (34.0-46.0) % MCV 88.9 (80.0-100.0) fL MCH 28.1 (25.0-35.0) pg MCHC 31.6 (31.0-37.0) g/dL RDW 14.0 (11.5-15.5) % Plt Count 264 (150-450) k/uL Neutrophils % (Manual) 85.0 % Band Neutrophils % 10.0 % Lymphocytes % (Manual) 4.0 % Monocytes % (Manual) 1.0 % Neutrophils # (Manual) 13.2 H (1.3-7.7) k/uL Lymphocytes # (Manual) 0.6 L (1.0-4.8) k/uL Monocytes # (Manual) 0.1 (0-1.0) k/uL Nucleated RBCs 0 (0-0) /100 WBC Hypochromasia Slight PT 13.1 H (9.0-12.0) sec INR 1.3 H (<1.2) APTT 21.9 L (22.0-30.0) sec Sodium (137-145) mmol/L Potassium (3.5-5.1) mmol/L Chloride (98-107) mmol/L Carbon Dioxide (22-30) mmol/L Anion Gap mmol/L BUN (7-17) mg/dL Creatinine (0.52-1.04) mg/dL Est GFR (MDRD) Af Amer (>60 ml/min/1.73 sqM) Est GFR (MDRD) Non-Af (>60 ml/min/1.73 sqM) Glucose (74-99) mg/dL Plasma Lactic Acid Alexandr (0.7-2.0) mmol/L Calcium (8.4-10.2) mg/dL Magnesium (1.6-2.3) mg/dL Total Bilirubin (0.2-1.3) mg/dL AST (14-36) U/L ALT (9-52) U/L Alkaline Phosphatase (38-126) U/L Ammonia (<30) umol/L Total Creatine Kinase (30-135) U/L CK-MB (CK-2) (0.0-2.4) ng/mL CK-MB (CK-2) Rel Index Troponin I (0.000-0.034) ng/mL Total Protein (6.3-8.2) g/dL Albumin (3.5-5.0) g/dL Amylase (30-110) U/L Lipase (23-300) U/L Stool Occult Blood Negative (Negative) Salicylates mg/dL Acetaminophen ug/mL Serum Alcohol mg/dL 02/16/17 02/16/17 02/16/17 Range/Units 20:32 20:32 20:32 WBC (3.8-10.6) k/uL RBC (3.80-5.40) m/uL Hgb (11.4-16.0) gm/dL Hct (34.0-46.0) % MCV (80.0-100.0) fL MCH (25.0-35.0) pg MCHC (31.0-37.0) g/dL RDW (11.5-15.5) % Plt Count (150-450) k/uL Neutrophils % (Manual) % Band Neutrophils % % Lymphocytes % (Manual) % Monocytes % (Manual) % Neutrophils # (Manual) (1.3-7.7) k/uL Lymphocytes # (Manual) (1.0-4.8) k/uL Monocytes # (Manual) (0-1.0) k/uL Nucleated RBCs (0-0) /100 WBC Hypochromasia PT (9.0-12.0) sec INR (<1.2) APTT (22.0-30.0) sec Sodium 139 (137-145) mmol/L Potassium 3.8 (3.5-5.1) mmol/L Chloride 103 (98-107) mmol/L Carbon Dioxide 11 L (22-30) mmol/L Anion Gap 25 mmol/L BUN 37 H (7-17) mg/dL Creatinine 4.00 H (0.52-1.04) mg/dL Est GFR (MDRD) Af Amer 14 (>60 ml/min/1.73 sqM) Est GFR (MDRD) Non-Af 12 (>60 ml/min/1.73 sqM) Glucose 314 H (74-99) mg/dL Plasma Lactic Acid Alexandr 9.7 H* (0.7-2.0) mmol/L Calcium 9.0 (8.4-10.2) mg/dL Magnesium 1.4 L (1.6-2.3) mg/dL Total Bilirubin 1.9 H (0.2-1.3) mg/dL AST 93 H (14-36) U/L ALT 46 (9-52) U/L Alkaline Phosphatase 214 H (38-126) U/L Ammonia 14 (<30) umol/L Total Creatine Kinase 898 H (30-135) U/L CK-MB (CK-2) 18.7 H* (0.0-2.4) ng/mL CK-MB (CK-2) Rel Index 2.1 Troponin I 0.079 H* (0.000-0.034) ng/mL Total Protein 7.3 (6.3-8.2) g/dL Albumin 3.3 L (3.5-5.0) g/dL Amylase 73 (30-110) U/L Lipase 75 (23-300) U/L Stool Occult Blood (Negative) Salicylates <1.0 mg/dL Acetaminophen <10.0 ug/mL Serum Alcohol <10 mg/dL EKG normal sinus rhythm, chest x-ray reviewed overall borderline cardiomegaly is present no acute infiltrate identified however right upper lobe there is density was present in the lower border of the density was confirmed on the upper cuts of the computed tomography scan of the abdomen with a differential diagnosis of pneumonia and lung mass and consolidation, computed tomography scan of the head is unremarkable, computed tomography scan of the abdominal and pelvis is reviewed at length there is surrounding inflammatory changes present along the graft site graft appears to be more patent in the upper part a clearcut abscesses however is not identified but clearly inflammatory changes were appreciated comparing to the left side Impression #1 severe sepsis and septic shock likely related to inflammatory process around the graft site broad-spectrum antibiotics are being initiated in the form of IV vancomycin and Zosyn and Levaquin, consolidation or Dr. Rodney has been initiated as well #2 right lower quadrant abdominal pain with inflammatory process possibly early abscess formation cannot be excluded, involving proximity to the graft #3 acute renal failure with severe profound metabolic acidosis #4 right upper lobe pneumonia likely mixed bacterial or gram-negative however a neoplastic process on lung mass cannot be excluded #5 peripheral arterial disease #6 history of DVT and left lower extremity fasciotomy #7 uncontrolled diabetes mellitus and hyperglycemia #8 dyslipidemia hypertension and hypertensive cardiovascular disease Plan and recommendations include #1 aggressive fluid resuscitation with utilization of crystalloids as well as vasopressors see orders for detail #2 initiation of bicarbonate drip #3 broad-spectrum antibiotics as dictated above #4 insulin drip #5 placement of a central line in a line has no IV access is available #6 labs chest x-ray blood gas has been ordered repeat them in the morning Care plan discussed with Dr. Alicia as well as the staff at length critical care time spent over 75 minutes
[2017-02-17 03:06] VITALS: BMI 26.4
[2017-02-17] MEDS ORDERED: Magnesium Replacement Protocol 1 EACH MISC MISCELLANE PRN (03:07)
[2017-02-17] MEDS ORDERED: Potassium Replacement Protocol 1 EACH MISC MISCELLANE PRN (03:07)
--- NOTE | 2017-02-17 03:09 | XR ---
Exam: XR CXR 1 VIEW History: Line placement. Comparison: None provided. Technique: Single frontal radiograph. Findings: Distal tip of a left IJ line projects at the expected location of the cavoatrial junction. Heart shadow is top normal in transverse dimension. There is suggestion of asymmetric haziness overlying the right upper lung. It projects over the sternoclavicular region. It may be due to artifact. Potentially could be due to osseous overlap. Cannot entirely rule out possibility of parenchymal consolidation. Consider comparison with prior, unavailable. Otherwise, may consider short-term follow-up radiograph. If finding persists, consider CT chest. Impression: Distal tip of left IJ line projects at cavoatrial Junction. Question opacity overlying the sternocleidomastoid region in the right upper lung as discussed above.
--- NOTE | 2017-02-17 03:09 | P.PCN ---
Date of Procedure: 02/17/17 Preoperative Diagnosis: CVS sepsis, septic shock, early abscess formation in the abdominal wall, right upper lobe pneumonia versus mass, acute renal failure, severe profound metabolic acidosis Postoperative Diagnosis: As above Procedure(s) Performed: Central line placement/triple-lumen catheter placement Implants: Anesthesia: local Surgeon: Burt Frausto Estimated Blood Loss (ml): 0 Pathology: none sent Condition: stable Disposition: ICU Indications for Procedure: As above Operative Findings: Tolerated procedure very well Description of Procedure: Informed consent obtained from the patient risk complication alternative were explained to the patient, local anesthesia obtained on the left anterior lateral part of the neck area was thoroughly cleaned prior to that using modified Seldinger technique triple-lumen catheter inserted into the left internal jugular vein via posterior approach patient tolerated the procedure well no complication noted post procedure chest x-ray reviewed stable position of the triple-lumen catheter
[2017-02-17] MEDS: SODIUM CHLORIDE 0.9% 1,000 ML IV SCH ×8 (03:12→16:45)
--- NOTE | 2017-02-17 03:14 | P.PCN ---
Date of Procedure: 02/17/17 Preoperative Diagnosis: CV her sepsis and septic shock, acute renal failure, right upper lobe pneumonia , anterior abdominal wall cellulitis versus early abscess formation, severe hypotension Postoperative Diagnosis: As above Procedure(s) Performed: Right radial arterial line placement, single lumen Implants: Anesthesia: local Surgeon: Burt Frausto Estimated Blood Loss (ml): 0 Pathology: none sent Condition: stable Disposition: ICU Indications for Procedure: As above Operative Findings: Tolerated well Description of Procedure: Patient prepared and draped in a usual fashion as well as procedure performed prior to the procedure, area was thoroughly cleaned of the right wrist, procedure explained to the patient risks alternatives and complications explained, using a modified Seldinger technique single-lumen catheter inserted into the right radial artery without any difficulty patient tolerated procedure well no complication noted good waveforms obtained secured with # silk
[2017-02-17] MEDS: PIPERACILLIN-TAZOBACTAM 3.375 GM in DEXTROSE/WATER 1 50ML.BAG IVPB SCH ×2 (03:18→16:35)
[2017-02-17] MEDS: POTASSIUM CHLORIDE 10 MEQ, LIDOCAINE 2% INJ 10 MG in SODIUM CHLORIDE 0.9% 100 ML IV SCH ×2 (03:46→04:53)
[2017-02-17] MEDS: MAGNESIUM SULFATE-D5W PMX 1 GM in DEXTROSE/WATER 1 100ML.BAG IVPB SCH ×3 (03:47→05:55)
[2017-02-17 04:24] LABS: Glucose,Whole Blood 211 mg/dL (75-99)
[2017-02-17] MEDS: INSULIN LISPRO (humaLOG) 300 UNIT/3 ML VIAL SQ SCH ×4 (04:29→16:22)
[2017-02-17 05:17] VITALS: BP 63/55
[2017-02-17 06:37] LABS: CHCM 31.2; HCT 38.5 % (34.0-46.0); HDW 2.51; Hypochromasia Slight; Immature Gran Flag Marked; MCH 28.8 pg (25.0-35.0); MCHC 31.9 g/dL (31.0-37.0); MCV 90.1 fL (80.0-100.0); Mean Platelet Volume 9.3; RBC 4.27 m/uL (3.80-5.40); RDW 14.9 % (11.5-15.5); WBC (Perox) 14.07
[2017-02-17] MEDS: HYDROmorphone 1 MG/ML 1 ML SYRINGE IVP PRN ×5 (06:45→15:42)
[2017-02-17 06:51] LABS: HGB 12.3 gm/dL (11.4-16.0)
[2017-02-17 07:00] LABS: Potassium 4.1 mmol/L (3.5-5.1); Total Bilirubin 1.8 mg/dL (0.2-1.3); Total Protein 4.6 g/dL (6.3-8.2)
[2017-02-17] MEDS ORDERED: VANCOMYCIN 1,250 MG in SODIUM CHLORIDE 0.9% 250 ML IVPB ONE (07:00)
[2017-02-17 07:08] LABS: Calcium 6.3 mg/dL (8.4-10.2)
[2017-02-17] MEDS ORDERED: INSULIN LISPRO (humaLOG) 300 UNIT/3 ML VIAL SQ SCH (07:30)
[2017-02-17 07:41] LABS: Add Differential Manual Differential
[2017-02-17 07:43] LABS: Nucleated Red Blood Cells 1 /100 WBC (0-0); Polychromasia Present; Total Cells Counted 100; WBC 12.7 k/uL (3.8-10.6)
--- NOTE | 2017-02-17 08:06 | XR ---
EXAMINATION TYPE: XR chest 1V portable DATE OF EXAM: 02/17/2017 HISTORY: Shortness of breath. COMPARISON: 02/17/2017 TECHNIQUE: Single view of the chest is submitted. FINDINGS: Demonstrated are scattered senescent parenchymal change. Left IJ central venous line is unchanged in position. Right apical opacity which may reflect underlying mass or infiltrate. Right apical surgical clips not ed. The heart is stable. Hilar and mediastinal structures are within normal limits. Degenerative changes are seen of the dorsal spine. IMPRESSION: 1. Right apical opacity which may reflect underlying mass or infiltrate.
[2017-02-17 08:16] LABS: Glucose,Whole Blood 200 mg/dL (75-99)
[2017-02-17] MEDS ORDERED: ESOMEPRAZOLE 20 MG in SODIUM CHLORIDE 0.9% 50 ML IVPB SCH (09:00)
[2017-02-17 09:04] LABS: ABG Base Excess -15.1 mmol/L; ABG HCO3 11 mmol/L (21-25); ABG PCO2 28 mmHg (35-45); ABG PH 7.23 (7.35-7.45); ABG PO2 97 mmHg (83-108); ABG TCO2 12 mmol/L (19-24)
[2017-02-17] MEDS ORDERED: CALCIUM GLUCONATE 2,000 MG in SODIUM CHLORIDE 0.9% 100 ML IVPB ONE (09:35)
[2017-02-17 09:39] LABS: Magnesium 2.4 mg/dL (1.6-2.3)
[2017-02-17] MEDS ORDERED: HEPARIN SODIUM,PORCINE 5,000 UNIT/ML 1 ML VIAL SQ SCH (09:45)
--- NOTE | 2017-02-17 11:40 | P.GSCN ---
History of Present Illness Consult date: 02/17/17 Reason for Consult: Possible graft infection. Requesting physician: Burt Frausto History of present illness: This 51-year-old female patient with a significant previous history of uncontrolled diabetes, hypertension, peripheral artery disease, heroin abuse, and occlusive vessel disease with an axillary bifemoral bypass graft placement and subsequent left leg fasciotomy done by Dr. Masood bush at [facility] presented to the emergency room yesterday with severe right abdominal pain. Apparently she has not been feeling good lately and yesterday had a visit from home care who told her she should report to the emergency room. She denies any nausea or vomiting. She denies chest pain or shortness of breath. She does have a wound VAC placed on the medial side of her left lower extremity which has been followed by Dr. Rodney in the wound care center. She did have a computed tomography scan of the abdomen in the emergency room which demonstrated subcutaneous density in the right side of the abdomen and around the graft that could relate to infectious process. She was admitted with the diagnosis of sepsis with a lactic acid level initially 9.7, peaking at 11.5, down to 8.0 this morning. She was started on Levaquin, Zosyn, and vancomycin, and is currently on Levophed. Dr. Rodney was consulted for recommendations regarding her graft. Review of Systems 14 point review systems was completed and was negative except as noted. 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 Pena at [facility]. Past Anesthesia/Blood Transfusion Reactions: No Reported Reaction Past Psychological History: No Psychological Hx Reported Smoking Status: Former smoker Past Alcohol Use History: None Reported Additional Past Alcohol Use History / Comment(s): Smoked 1/2 PPd for 25 yrs, quit 09/2016 Past Drug Use History: None Reported, Heroin - Past Family History Mother Family Medical History: No Reported History Medications and Allergies Home Medications Medication Instructions Recorded Confirmed Type ALPRAZolam [Xanax] 1 mg PO TID 10/12/16 02/07/17 History Atorvastatin Calcium [Lipitor] 10 mg PO HS 10/12/16 02/07/17 History Clopidogrel [Plavix] 75 mg PO DAILY 10/12/16 02/07/17 History Ferrous Sulfate [Feosol] 325 mg PO BID 10/12/16 02/07/17 History Morphine Sulfate ER [Ms Contin 30 mg PO Q12H 10/12/16 02/07/17 History 30Mg] Omeprazole 20 mg PO DAILY 10/12/16 02/07/17 History amLODIPine [Norvasc] 10 mg PO DAILY 10/12/16 02/07/17 History metFORMIN HCL [Glucophage] 1,000 mg PO BID 10/12/16 02/07/17 History oxyCODONE-APAP 10-325MG [Percocet 1 tab PO Q4-6H PRN 10/12/16 02/07/17 History 10-325 mg] Metoprolol Tartrate [Metoprolol 25 mg PO BID 10/20/16 02/07/17 History Tartrate] Allergies Allergy/AdvReac Type Severity Reaction Status Date / Time No Known Allergies Allergy Verified 02/16/17 19:05 Surgical - Exam Vital Signs Temp Pulse Resp BP Pulse Ox 98.3 F 105 H 18 132/60 97 02/16/17 19:02 02/16/17 19:02 02/16/17 19:02 02/16/17 19:02 02/16/17 19:02 - General well developed, moderate distress, severe pain - Eyes PERRL, normal ocular movement - ENT no hearing loss - Neck trachea midline - Respiratory Lungs sounds diminished bilaterally. Respirations even, nonlabored. Currently on 3 L nasal cannula with oxygen saturation 99%. - Cardiovascular S1, S2 present. Regular rate and rhythm, normal sinus rhythm on telemetry. Palpable DP pulses bilaterally but very faint. - Abdomen Abdomen is soft but very tender to even minimal touch on the right side. Hypoactive bowel sounds present. States she did have a bowel movement yesterday. - Genitourinary Randall present was minimal clear yellow urine output. Only 5-10 mL/h. - Rectum Deferred - Integumentary Wound VAC present left lower extremity medial side of manzo. Left great toe slightly dusky at the tip. Lower extremities cold to touch. - Neurologic normal sensation - Psychiatric Patient teary-eyed, highly anxious. oriented to time, oriented to person, oriented to place, speech is normal, memory intact Results - Labs 02/17/17 06:25 02/17/17 06:25 Abnormal Lab Results - Last 24 Hours (Table) 02/16/17 02/16/17 02/16/17 Range/Units 01:15 01:15 20:32 WBC 13.9 H (3.8-10.6) k/uL RBC 5.57 H (3.80-5.40) m/uL Hct 49.5 H (34.0-46.0) % Neutrophils # (Manual) 13.2 H (1.3-7.7) k/uL Lymphocytes # (Manual) 0.6 L (1.0-4.8) k/uL Nucleated RBCs (0-0) /100 WBC PT (9.0-12.0) sec INR (<1.2) APTT (22.0-30.0) sec ABG pH (7.35-7.45) ABG pCO2 (35-45) mmHg ABG HCO3 (21-25) mmol/L ABG Total CO2 (19-24) mmol/L Carbon Dioxide (22-30) mmol/L BUN (7-17) mg/dL Creatinine (0.52-1.04) mg/dL Glucose (74-99) mg/dL POC Glucose (mg/dL) (75-99) mg/dL Plasma Lactic Acid Alexandr (0.7-2.0) mmol/L Calcium (8.4-10.2) mg/dL Magnesium (1.6-2.3) mg/dL Total Bilirubin (0.2-1.3) mg/dL AST (14-36) U/L ALT (9-52) U/L Alkaline Phosphatase (38-126) U/L Total Creatine Kinase (30-135) U/L CK-MB (CK-2) (0.0-2.4) ng/mL Troponin I (0.000-0.034) ng/mL Total Protein (6.3-8.2) g/dL Albumin (3.5-5.0) g/dL Urine Appearance Turbid H (Clear) Urine Protein 3+ H (Negative) Urine Glucose (UA) 1+ H (Negative) Urine Blood Large H (Negative) Ur Leukocyte Esterase Large H (Negative) Urine RBC 31 H (0-5) /hpf Urine WBC 151 H (0-5) /hpf Urine WBC Clumps Many H (None) /hpf Ur Squamous Epith Cells 6 H (0-4) /hpf Amorphous Sediment Rare H (None) /hpf Urine Bacteria Occasional H (None) /hpf Urine Mucus Occasional H (None) /hpf Urine Opiates Screen Detected H (NotDetected) U Methamphetamines Scrn Detected H (NotDetected) U Benzodiazepines Scrn Detected H (NotDetected) Urine Cocaine Screen Detected H (NotDetected) U Marijuana (THC) Screen Detected H (NotDetected) 02/16/17 02/16/17 02/16/17 Range/Units 20:32 20:32 20:32 WBC (3.8-10.6) k/uL RBC (3.80-5.40) m/uL Hct (34.0-46.0) % Neutrophils # (Manual) (1.3-7.7) k/uL Lymphocytes # (Manual) (1.0-4.8) k/uL Nucleated RBCs (0-0) /100 WBC PT 13.1 H (9.0-12.0) sec INR 1.3 H (<1.2) APTT 21.9 L (22.0-30.0) sec ABG pH (7.35-7.45) ABG pCO2 (35-45) mmHg ABG HCO3 (21-25) mmol/L ABG Total CO2 (19-24) mmol/L Carbon Dioxide 11 L (22-30) mmol/L BUN 37 H (7-17) mg/dL Creatinine 4.00 H (0.52-1.04) mg/dL Glucose 314 H (74-99) mg/dL POC Glucose (mg/dL) (75-99) mg/dL Plasma Lactic Acid Alexandr 9.7 H* (0.7-2.0) mmol/L Calcium (8.4-10.2) mg/dL Magnesium 1.4 L (1.6-2.3) mg/dL Total Bilirubin 1.9 H (0.2-1.3) mg/dL AST 93 H (14-36) U/L ALT (9-52) U/L Alkaline Phosphatase 214 H (38-126) U/L Total Creatine Kinase (30-135) U/L CK-MB (CK-2) (0.0-2.4) ng/mL Troponin I (0.000-0.034) ng/mL Total Protein (6.3-8.2) g/dL Albumin 3.3 L (3.5-5.0) g/dL Urine Appearance (Clear) Urine Protein (Negative) Urine Glucose (UA) (Negative) Urine Blood (Negative) Ur Leukocyte Esterase (Negative) Urine RBC (0-5) /hpf Urine WBC (0-5) /hpf Urine WBC Clumps (None) /hpf Ur Squamous Epith Cells (0-4) /hpf Amorphous Sediment (None) /hpf Urine Bacteria (None) /hpf Urine Mucus (None) /hpf Urine Opiates Screen (NotDetected) U Methamphetamines Scrn (NotDetected) U Benzodiazepines Scrn (NotDetected) Urine Cocaine Screen (NotDetected) U Marijuana (THC) Screen (NotDetected) 02/16/17 02/17/17 02/17/17 Range/Units 20:32 00:40 00:40 WBC (3.8-10.6) k/uL RBC (3.80-5.40) m/uL Hct (34.0-46.0) % Neutrophils # (Manual) (1.3-7.7) k/uL Lymphocytes # (Manual) (1.0-4.8) k/uL Nucleated RBCs (0-0) /100 WBC PT (9.0-12.0) sec INR (<1.2) APTT (22.0-30.0) sec ABG pH (7.35-7.45) ABG pCO2 (35-45) mmHg ABG HCO3 (21-25) mmol/L ABG Total CO2 (19-24) mmol/L Carbon Dioxide (22-30) mmol/L BUN (7-17) mg/dL Creatinine (0.52-1.04) mg/dL Glucose (74-99) mg/dL POC Glucose (mg/dL) (75-99) mg/dL Plasma Lactic Acid Alexandr 11.5 H* (0.7-2.0) mmol/L Calcium (8.4-10.2) mg/dL Magnesium (1.6-2.3) mg/dL Total Bilirubin (0.2-1.3) mg/dL AST (14-36) U/L ALT (9-52) U/L Alkaline Phosphatase (38-126) U/L Total Creatine Kinase 898 H 2397 H (30-135) U/L CK-MB (CK-2) 18.7 H* 61.0 H* (0.0-2.4) ng/mL Troponin I 0.079 H* 0.094 H* (0.000-0.034) ng/mL Total Protein (6.3-8.2) g/dL Albumin (3.5-5.0) g/dL Urine Appearance (Clear) Urine Protein (Negative) Urine Glucose (UA) (Negative) Urine Blood (Negative) Ur Leukocyte Esterase (Negative) Urine RBC (0-5) /hpf Urine WBC (0-5) /hpf Urine WBC Clumps (None) /hpf Ur Squamous Epith Cells (0-4) /hpf Amorphous Sediment (None) /hpf Urine Bacteria (None) /hpf Urine Mucus (None) /hpf Urine Opiates Screen (NotDetected) U Methamphetamines Scrn (NotDetected) U Benzodiazepines Scrn (NotDetected) Urine Cocaine Screen (NotDetected) U Marijuana (THC) Screen (NotDetected) 02/17/17 02/17/17 02/17/17 Range/Units 02:16 04:22 06:25 WBC 12.7 H (3.8-10.6) k/uL RBC (3.80-5.40) m/uL Hct (34.0-46.0) % Neutrophils # (Manual) 11.6 H (1.3-7.7) k/uL Lymphocytes # (Manual) 0.3 L (1.0-4.8) k/uL Nucleated RBCs 1 H (0-0) /100 WBC PT (9.0-12.0) sec INR (<1.2) APTT (22.0-30.0) sec ABG pH 7.26 L (7.35-7.45) ABG pCO2 24 L (35-45) mmHg ABG HCO3 11 L (21-25) mmol/L ABG Total CO2 11 L (19-24) mmol/L Carbon Dioxide (22-30) mmol/L BUN (7-17) mg/dL Creatinine (0.52-1.04) mg/dL Glucose (74-99) mg/dL POC Glucose (mg/dL) 211 H (75-99) mg/dL Plasma Lactic Acid Alexandr (0.7-2.0) mmol/L Calcium (8.4-10.2) mg/dL Magnesium (1.6-2.3) mg/dL Total Bilirubin (0.2-1.3) mg/dL AST (14-36) U/L ALT (9-52) U/L Alkaline Phosphatase (38-126) U/L Total Creatine Kinase (30-135) U/L CK-MB (CK-2) (0.0-2.4) ng/mL Troponin I (0.000-0.034) ng/mL Total Protein (6.3-8.2) g/dL Albumin (3.5-5.0) g/dL Urine Appearance (Clear) Urine Protein (Negative) Urine Glucose (UA) (Negative) Urine Blood (Negative) Ur Leukocyte Esterase (Negative) Urine RBC (0-5) /hpf Urine WBC (0-5) /hpf Urine WBC Clumps (None) /hpf Ur Squamous Epith Cells (0-4) /hpf Amorphous Sediment (None) /hpf Urine Bacteria (None) /hpf Urine Mucus (None) /hpf Urine Opiates Screen (NotDetected) U Methamphetamines Scrn (NotDetected) U Benzodiazepines Scrn (NotDetected) Urine Cocaine Screen (NotDetected) U Marijuana (THC) Screen (NotDetected) 02/17/17 02/17/17 02/17/17 Range/Units 06:25 06:25 08:13 WBC (3.8-10.6) k/uL RBC (3.80-5.40) m/uL Hct (34.0-46.0) % Neutrophils # (Manual) (1.3-7.7) k/uL Lymphocytes # (Manual) (1.0-4.8) k/uL Nucleated RBCs (0-0) /100 WBC PT (9.0-12.0) sec INR (<1.2) APTT (22.0-30.0) sec ABG pH (7.35-7.45) ABG pCO2 (35-45) mmHg ABG HCO3 (21-25) mmol/L ABG Total CO2 (19-24) mmol/L Carbon Dioxide 11 L (22-30) mmol/L BUN 36 H (7-17) mg/dL Creatinine 3.93 H (0.52-1.04) mg/dL Glucose 187 H (74-99) mg/dL POC Glucose (mg/dL) 200 H (75-99) mg/dL Plasma Lactic Acid Alexandr 8.0 H* (0.7-2.0) mmol/L Calcium 6.3 L* (8.4-10.2) mg/dL Magnesium 2.4 H (1.6-2.3) mg/dL Total Bilirubin 1.8 H (0.2-1.3) mg/dL AST 172 H (14-36) U/L ALT 64 H (9-52) U/L Alkaline Phosphatase (38-126) U/L Total Creatine Kinase (30-135) U/L CK-MB (CK-2) (0.0-2.4) ng/mL Troponin I (0.000-0.034) ng/mL Total Protein 4.6 L (6.3-8.2) g/dL Albumin 1.9 L (3.5-5.0) g/dL Urine Appearance (Clear) Urine Protein (Negative) Urine Glucose (UA) (Negative) Urine Blood (Negative) Ur Leukocyte Esterase (Negative) Urine RBC (0-5) /hpf Urine WBC (0-5) /hpf Urine WBC Clumps (None) /hpf Ur Squamous Epith Cells (0-4) /hpf Amorphous Sediment (None) /hpf Urine Bacteria (None) /hpf Urine Mucus (None) /hpf Urine Opiates Screen (NotDetected) U Methamphetamines Scrn (NotDetected) U Benzodiazepines Scrn (NotDetected) Urine Cocaine Screen (NotDetected) U Marijuana (THC) Screen (NotDetected) 02/17/17 Range/Units 09:01 WBC (3.8-10.6) k/uL RBC (3.80-5.40) m/uL Hct (34.0-46.0) % Neutrophils # (Manual) (1.3-7.7) k/uL Lymphocytes # (Manual) (1.0-4.8) k/uL Nucleated RBCs (0-0) /100 WBC PT (9.0-12.0) sec INR (<1.2) APTT (22.0-30.0) sec ABG pH 7.23 L (7.35-7.45) ABG pCO2 28 L (35-45) mmHg ABG HCO3 11 L (21-25) mmol/L ABG Total CO2 12 L (19-24) mmol/L Carbon Dioxide (22-30) mmol/L BUN (7-17) mg/dL Creatinine (0.52-1.04) mg/dL Glucose (74-99) mg/dL POC Glucose (mg/dL) (75-99) mg/dL Plasma Lactic Acid Alexandr (0.7-2.0) mmol/L Calcium (8.4-10.2) mg/dL Magnesium (1.6-2.3) mg/dL Total Bilirubin (0.2-1.3) mg/dL AST (14-36) U/L ALT (9-52) U/L Alkaline Phosphatase (38-126) U/L Total Creatine Kinase (30-135) U/L CK-MB (CK-2) (0.0-2.4) ng/mL Troponin I (0.000-0.034) ng/mL Total Protein (6.3-8.2) g/dL Albumin (3.5-5.0) g/dL Urine Appearance (Clear) Urine Protein (Negative) Urine Glucose (UA) (Negative) Urine Blood (Negative) Ur Leukocyte Esterase (Negative) Urine RBC (0-5) /hpf Urine WBC (0-5) /hpf Urine WBC Clumps (None) /hpf Ur Squamous Epith Cells (0-4) /hpf Amorphous Sediment (None) /hpf Urine Bacteria (None) /hpf Urine Mucus (None) /hpf Urine Opiates Screen (NotDetected) U Methamphetamines Scrn (NotDetected) U Benzodiazepines Scrn (NotDetected) Urine Cocaine Screen (NotDetected) U Marijuana (THC) Screen (NotDetected) Microbiology - Last 24 Hours (Table) 02/16/17 01:15 Urine Culture - Preliminary Urine,Catheterized 02/16/17 20:32 Blood Culture Gram Stain - Preliminary Blood 02/16/17 20:32 Blood Culture - Final Blood 02/16/17 20:30 Stool for WBCs - Final Stool 02/16/17 20:30 Stool Culture - Preliminary Stool Diabetes panel 02/16/17 02/17/17 Range/Units 20:32 06:25 Sodium 139 137 (137-145) mmol/L Potassium 3.8 4.1 (3.5-5.1) mmol/L Chloride 103 107 (98-107) mmol/L Carbon Dioxide 11 L 11 L (22-30) mmol/L BUN 37 H 36 H (7-17) mg/dL Creatinine 4.00 H 3.93 H (0.52-1.04) mg/dL Glucose 314 H 187 H (74-99) mg/dL Calcium 9.0 6.3 L* (8.4-10.2) mg/dL AST 93 H 172 H (14-36) U/L ALT 46 64 H (9-52) U/L Alkaline Phosphatase 214 H 123 (38-126) U/L Total Protein 7.3 4.6 L (6.3-8.2) g/dL Albumin 3.3 L 1.9 L (3.5-5.0) g/dL Calcium panel 02/16/17 02/17/17 Range/Units 20:32 06:25 Calcium 9.0 6.3 L* (8.4-10.2) mg/dL Albumin 3.3 L 1.9 L (3.5-5.0) g/dL Pituitary panel 02/16/17 02/17/17 Range/Units 20:32 06:25 Sodium 139 137 (137-145) mmol/L Potassium 3.8 4.1 (3.5-5.1) mmol/L Chloride 103 107 (98-107) mmol/L Carbon Dioxide 11 L 11 L (22-30) mmol/L BUN 37 H 36 H (7-17) mg/dL Creatinine 4.00 H 3.93 H (0.52-1.04) mg/dL Glucose 314 H 187 H (74-99) mg/dL Calcium 9.0 6.3 L* (8.4-10.2) mg/dL Adrenal panel 02/16/17 02/17/17 Range/Units 20:32 06:25 Sodium 139 137 (137-145) mmol/L Potassium 3.8 4.1 (3.5-5.1) mmol/L Chloride 103 107 (98-107) mmol/L Carbon Dioxide 11 L 11 L (22-30) mmol/L BUN 37 H 36 H (7-17) mg/dL Creatinine 4.00 H 3.93 H (0.52-1.04) mg/dL Glucose 314 H 187 H (74-99) mg/dL Calcium 9.0 6.3 L* (8.4-10.2) mg/dL Total Bilirubin 1.9 H 1.8 H (0.2-1.3) mg/dL AST 93 H 172 H (14-36) U/L ALT 46 64 H (9-52) U/L Alkaline Phosphatase 214 H 123 (38-126) U/L Total Protein 7.3 4.6 L (6.3-8.2) g/dL Albumin 3.3 L 1.9 L (3.5-5.0) g/dL - Imaging Chest x-ray: report reviewed, image reviewed CT scan - abdomen: report reviewed, image reviewed Assessment and Plan (1) Diabetes mellitus type 2 in nonobese Status: Acute (2) Hypertension Status: Acute (3) Peripheral artery disease Status: Acute (4) History of heroin abuse Status: Acute (5) VILMA (acute kidney injury) Status: Acute (6) Severe sepsis Status: Acute Plan: The patient was seen and examined. Chart/diagnostics reviewed. The case was discussed in detail with Dr. Rodney. The recommendation is to transfer patient back to [facility] under the care of Dr. Serna to remove the possibly infected graft. This was discussed with Dr. Gordon and Dr. Frausto. Thank you Dr. Frausto for this consult. Please do not hesitate to call us with any questions. Time with Patient: Greater than 30
--- NOTE | 2017-02-17 12:02 | P.PN ---
Subjective 51-year-old female presents with chief complaint of she states that she just has a hard time keeping her eyes open and then she has a hard time walking and she has this right-sided abdominal pain and she just has not felt right since. Patient is a poor historian. wound VAC to the left leg due to the procedure due to blood clots but states that does not seem to be the problem. Home nurse came today and they stated that she should go to the ER. Patient states that she just does not feel right. Patient states she cannot put her finger on why she does not feel right but she just does not. Patient denies any vomiting with this. She denies any chest pain or shortness of breath any fever or chills. Patient denies any cough cold like symptoms. Patient was subsequently evaluated in the emergency department as well as in the ICU review of the data revealed that patient had axillary femoral bypass graft performed by Dr. Rodney a few years ago, chest x-ray EKG computed tomography scan of the head and abdominal CAT scan reviewed as well care plan discussed with the nurses and Dr. ingram ER physician time spent over 75 minutes, of note that while patient was transported from the emergency department into the ICU lost on the single IV which was present in the time that will require emergent central line placement as well as arterial line, patient was noted to her drop in blood pressure is well of note that hemodynamically she was stable in the ED but however on arrival in ICU blood pressure dropped down into the 90s systolic mapping to 60s patient has been morning and continuously complaining abdominal in the right lower quadrant she is somewhat nauseous 02/17/17 patient seen and evaluated examined during the round in ICU and he needed to have significant pain on the right abdomen involving the right lower quadrant as well as partly in the right upper quadrant some diffuse extension is present into middle abdominal and some on the left side patient has been on Dilaudid 2 mg every 4 which seems to be controlling pain he nauseous as well she is somnolent and lethargic but readily arousable her oxygenation is stable on 2 L oxygen saturation 95-96% has been started on Harry Pasquale which is 10 mics with the aim to keep systolic over 90 and map into 60s and 70s I've discussed with vascular surgery Dr. Rodney nurse practitioner culture results reported reviewed patient has been found to have gram-positive cocci in clusters and the blood urine output remains very marginal on the 5-10 mL/h has been noted she is being started on DVT and peptic ulcer disease prophylaxis as well Objective - Vital Signs Vital signs: Vital Signs Temp 97.6 F 02/17/17 08:00 Pulse 81 02/17/17 11:00 Resp 20 02/17/17 11:00 BP 63/55 02/17/17 02:50 Pulse Ox 95 02/17/17 11:00 Intake & Output 02/16/17 02/17/17 02/17/17 18:59 06:59 18:59 Intake Total 2172.360 745.533 Output Total 5 230 Balance 2167.360 515.533 Weight 76.6 kg Intake: IV 2150.0 700 Dextrose 5% in Water 1, 200 500 000 ml @ 100 mls/hr IV . [id number] LON with Sodium Bicarb (1 Meq/ml) 150 ml Rx#:[id number] Magnesium Sulfate-D5w Pmx 200 1 gm In Dextrose/Water 1 100ml.bag @ 100 mls/hr IVPB Q1H LON Rx#: [id number] Piperacillin-Tazobactam 3 50.0 .375 gm In Dextrose/Water 1 50ml.bag @ 12.5 mls/hr IVPB Q12H LON Rx#: [id number] Potassium Chloride 10 meq 200 Lidocaine 2% Inj 10 mg In Sodium Chloride 0.9% 100 ml @ 100 mls/hr IV Q1HR LON Rx#:[id number] Sodium Chloride 0.9% 1, 200 000 ml @ 50 mls/hr IV . Q20H LON Rx#:[id number] Sodium Chloride 0.9% 1, 1500 000 ml @ 500 mls/hr IV . Q2H LON Rx#:[id number] Intake, IV Titration 22.360 45.533 Amount Norepinephrin 16 mg-0.9% 22.360 45.533 Ns Pmx 16 mg In 250 ml @ Titrate IV .Q0M LON Rx#: [id number] Output: Urine 5 30 Stool 200 Other: Voiding Method Indwelling Catheter Indwelling Catheter ABP, PAP, CO, CI - Last Documented Arterial Blood Pressure 96/46 - Exam General: The patient is awake and alert, in no distress, and does not appear acutely ill. Eye: Pupils are equal, round and reactive to light, extra-ocular movements are intact; there is normal conjunctiva bilaterally. No signs of icterus. Ears, nose, mouth and throat: There are moist mucous membranes and no oral lesions. Neck: The neck is supple, there is no tenderness. Cardiovascular: There is a regular rate and rhythm. No murmur, rub or gallop is appreciated. Respiratory: Lungs are clear to auscultation, respirations are non-labored, breath sounds are equal. No wheezes, stridor, rales, or rhonchi. Gastrointestinal: right lateral aspect of the right upper abdominal wall there does appear to be some tenderness now over area with no erythema. Slightly firm, diffuse predominantly right side but also tenderness present appears to be extending into the right upper and mid quadrant Soft, non- distended, non-tender abdomen without masses or organomegaly noted. There is no rebound or guarding present. No CVA tenderness. Bowel sounds are unremarkable. Back: There is no tenderness to palpation in the midline. There is no obvious deformity. No rashes noted. Musculoskeletal: Normal ROM, no tenderness, There is no pedal edema. There is no calf tenderness or swelling. Sensation intact. Pulses equal bilaterally 2+. The wound VAC in the left lower extremity appears to be intact no surrounding the redness and/or or, inflammatory changes were seen Neurological: CN II-XII intact, There are no obvious motor or sensory deficits. Coordination appears grossly intact. Speech is normal. Skin: Skin is warm and dry and no rashes or lesions are noted. Psychiatric: Cooperative, appropriate mood & affect, normal judgment. - Labs CBC & Chem 7: 02/17/17 06:25 02/17/17 06:25 Labs: Abnormal Lab Results - Last 24 Hours (Table) 02/16/17 02/16/17 02/16/17 Range/Units 01:15 01:15 20:32 WBC 13.9 H (3.8-10.6) k/uL RBC 5.57 H (3.80-5.40) m/uL Hct 49.5 H (34.0-46.0) % Neutrophils # (Manual) 13.2 H (1.3-7.7) k/uL Lymphocytes # (Manual) 0.6 L (1.0-4.8) k/uL Nucleated RBCs (0-0) /100 WBC PT (9.0-12.0) sec INR (<1.2) APTT (22.0-30.0) sec ABG pH (7.35-7.45) ABG pCO2 (35-45) mmHg ABG HCO3 (21-25) mmol/L ABG Total CO2 (19-24) mmol/L Carbon Dioxide (22-30) mmol/L BUN (7-17) mg/dL Creatinine (0.52-1.04) mg/dL Glucose (74-99) mg/dL POC Glucose (mg/dL) (75-99) mg/dL Plasma Lactic Acid Alexandr (0.7-2.0) mmol/L Calcium (8.4-10.2) mg/dL Magnesium (1.6-2.3) mg/dL Total Bilirubin (0.2-1.3) mg/dL AST (14-36) U/L ALT (9-52) U/L Alkaline Phosphatase (38-126) U/L Total Creatine Kinase (30-135) U/L CK-MB (CK-2) (0.0-2.4) ng/mL Troponin I (0.000-0.034) ng/mL Total Protein (6.3-8.2) g/dL Albumin (3.5-5.0) g/dL Urine Appearance Turbid H (Clear) Urine Protein 3+ H (Negative) Urine Glucose (UA) 1+ H (Negative) Urine Blood Large H (Negative) Ur Leukocyte Esterase Large H (Negative) Urine RBC 31 H (0-5) /hpf Urine WBC 151 H (0-5) /hpf Urine WBC Clumps Many H (None) /hpf Ur Squamous Epith Cells 6 H (0-4) /hpf Amorphous Sediment Rare H (None) /hpf Urine Bacteria Occasional H (None) /hpf Urine Mucus Occasional H (None) /hpf Urine Opiates Screen Detected H (NotDetected) U Methamphetamines Scrn Detected H (NotDetected) U Benzodiazepines Scrn Detected H (NotDetected) Urine Cocaine Screen Detected H (NotDetected) U Marijuana (THC) Screen Detected H (NotDetected) 02/16/17 02/16/17 02/16/17 Range/Units 20:32 20:32 20:32 WBC (3.8-10.6) k/uL RBC (3.80-5.40) m/uL Hct (34.0-46.0) % Neutrophils # (Manual) (1.3-7.7) k/uL Lymphocytes # (Manual) (1.0-4.8) k/uL Nucleated RBCs (0-0) /100 WBC PT 13.1 H (9.0-12.0) sec INR 1.3 H (<1.2) APTT 21.9 L (22.0-30.0) sec ABG pH (7.35-7.45) ABG pCO2 (35-45) mmHg ABG HCO3 (21-25) mmol/L ABG Total CO2 (19-24) mmol/L Carbon Dioxide 11 L (22-30) mmol/L BUN 37 H (7-17) mg/dL Creatinine 4.00 H (0.52-1.04) mg/dL Glucose 314 H (74-99) mg/dL POC Glucose (mg/dL) (75-99) mg/dL Plasma Lactic Acid Alexandr 9.7 H* (0.7-2.0) mmol/L Calcium (8.4-10.2) mg/dL Magnesium 1.4 L (1.6-2.3) mg/dL Total Bilirubin 1.9 H (0.2-1.3) mg/dL AST 93 H (14-36) U/L ALT (9-52) U/L Alkaline Phosphatase 214 H (38-126) U/L Total Creatine Kinase (30-135) U/L CK-MB (CK-2) (0.0-2.4) ng/mL Troponin I (0.000-0.034) ng/mL Total Protein (6.3-8.2) g/dL Albumin 3.3 L (3.5-5.0) g/dL Urine Appearance (Clear) Urine Protein (Negative) Urine Glucose (UA) (Negative) Urine Blood (Negative) Ur Leukocyte Esterase (Negative) Urine RBC (0-5) /hpf Urine WBC (0-5) /hpf Urine WBC Clumps (None) /hpf Ur Squamous Epith Cells (0-4) /hpf Amorphous Sediment (None) /hpf Urine Bacteria (None) /hpf Urine Mucus (None) /hpf Urine Opiates Screen (NotDetected) U Methamphetamines Scrn (NotDetected) U Benzodiazepines Scrn (NotDetected) Urine Cocaine Screen (NotDetected) U Marijuana (THC) Screen (NotDetected) 02/16/17 02/17/17 02/17/17 Range/Units 20:32 00:40 00:40 WBC (3.8-10.6) k/uL RBC (3.80-5.40) m/uL Hct (34.0-46.0) % Neutrophils # (Manual) (1.3-7.7) k/uL Lymphocytes # (Manual) (1.0-4.8) k/uL Nucleated RBCs (0-0) /100 WBC PT (9.0-12.0) sec INR (<1.2) APTT (22.0-30.0) sec ABG pH (7.35-7.45) ABG pCO2 (35-45) mmHg ABG HCO3 (21-25) mmol/L ABG Total CO2 (19-24) mmol/L Carbon Dioxide (22-30) mmol/L BUN (7-17) mg/dL Creatinine (0.52-1.04) mg/dL Glucose (74-99) mg/dL POC Glucose (mg/dL) (75-99) mg/dL Plasma Lactic Acid Alexandr 11.5 H* (0.7-2.0) mmol/L Calcium (8.4-10.2) mg/dL Magnesium (1.6-2.3) mg/dL Total Bilirubin (0.2-1.3) mg/dL AST (14-36) U/L ALT (9-52) U/L Alkaline Phosphatase (38-126) U/L Total Creatine Kinase 898 H 2397 H (30-135) U/L CK-MB (CK-2) 18.7 H* 61.0 H* (0.0-2.4) ng/mL Troponin I 0.079 H* 0.094 H* (0.000-0.034) ng/mL Total Protein (6.3-8.2) g/dL Albumin (3.5-5.0) g/dL Urine Appearance (Clear) Urine Protein (Negative) Urine Glucose (UA) (Negative) Urine Blood (Negative) Ur Leukocyte Esterase (Negative) Urine RBC (0-5) /hpf Urine WBC (0-5) /hpf Urine WBC Clumps (None) /hpf Ur Squamous Epith Cells (0-4) /hpf Amorphous Sediment (None) /hpf Urine Bacteria (None) /hpf Urine Mucus (None) /hpf Urine Opiates Screen (NotDetected) U Methamphetamines Scrn (NotDetected) U Benzodiazepines Scrn (NotDetected) Urine Cocaine Screen (NotDetected) U Marijuana (THC) Screen (NotDetected) 02/17/17 02/17/17 02/17/17 Range/Units 02:16 04:22 06:25 WBC 12.7 H (3.8-10.6) k/uL RBC (3.80-5.40) m/uL Hct (34.0-46.0) % Neutrophils # (Manual) 11.6 H (1.3-7.7) k/uL Lymphocytes # (Manual) 0.3 L (1.0-4.8) k/uL Nucleated RBCs 1 H (0-0) /100 WBC PT (9.0-12.0) sec INR (<1.2) APTT (22.0-30.0) sec ABG pH 7.26 L (7.35-7.45) ABG pCO2 24 L (35-45) mmHg ABG HCO3 11 L (21-25) mmol/L ABG Total CO2 11 L (19-24) mmol/L Carbon Dioxide (22-30) mmol/L BUN (7-17) mg/dL Creatinine (0.52-1.04) mg/dL Glucose (74-99) mg/dL POC Glucose (mg/dL) 211 H (75-99) mg/dL Plasma Lactic Acid Alexandr (0.7-2.0) mmol/L Calcium (8.4-10.2) mg/dL Magnesium (1.6-2.3) mg/dL Total Bilirubin (0.2-1.3) mg/dL AST (14-36) U/L ALT (9-52) U/L Alkaline Phosphatase (38-126) U/L Total Creatine Kinase (30-135) U/L CK-MB (CK-2) (0.0-2.4) ng/mL Troponin I (0.000-0.034) ng/mL Total Protein (6.3-8.2) g/dL Albumin (3.5-5.0) g/dL Urine Appearance (Clear) Urine Protein (Negative) Urine Glucose (UA) (Negative) Urine Blood (Negative) Ur Leukocyte Esterase (Negative) Urine RBC (0-5) /hpf Urine WBC (0-5) /hpf Urine WBC Clumps (None) /hpf Ur Squamous Epith Cells (0-4) /hpf Amorphous Sediment (None) /hpf Urine Bacteria (None) /hpf Urine Mucus (None) /hpf Urine Opiates Screen (NotDetected) U Methamphetamines Scrn (NotDetected) U Benzodiazepines Scrn (NotDetected) Urine Cocaine Screen (NotDetected) U Marijuana (THC) Screen (NotDetected) 02/17/17 02/17/17 02/17/17 Range/Units 06:25 06:25 08:13 WBC (3.8-10.6) k/uL RBC (3.80-5.40) m/uL Hct (34.0-46.0) % Neutrophils # (Manual) (1.3-7.7) k/uL Lymphocytes # (Manual) (1.0-4.8) k/uL Nucleated RBCs (0-0) /100 WBC PT (9.0-12.0) sec INR (<1.2) APTT (22.0-30.0) sec ABG pH (7.35-7.45) ABG pCO2 (35-45) mmHg ABG HCO3 (21-25) mmol/L ABG Total CO2 (19-24) mmol/L Carbon Dioxide 11 L (22-30) mmol/L BUN 36 H (7-17) mg/dL Creatinine 3.93 H (0.52-1.04) mg/dL Glucose 187 H (74-99) mg/dL POC Glucose (mg/dL) 200 H (75-99) mg/dL Plasma Lactic Acid Alexandr 8.0 H* (0.7-2.0) mmol/L Calcium 6.3 L* (8.4-10.2) mg/dL Magnesium 2.4 H (1.6-2.3) mg/dL Total Bilirubin 1.8 H (0.2-1.3) mg/dL AST 172 H (14-36) U/L ALT 64 H (9-52) U/L Alkaline Phosphatase (38-126) U/L Total Creatine Kinase (30-135) U/L CK-MB (CK-2) (0.0-2.4) ng/mL Troponin I (0.000-0.034) ng/mL Total Protein 4.6 L (6.3-8.2) g/dL Albumin 1.9 L (3.5-5.0) g/dL Urine Appearance (Clear) Urine Protein (Negative) Urine Glucose (UA) (Negative) Urine Blood (Negative) Ur Leukocyte Esterase (Negative) Urine RBC (0-5) /hpf Urine WBC (0-5) /hpf Urine WBC Clumps (None) /hpf Ur Squamous Epith Cells (0-4) /hpf Amorphous Sediment (None) /hpf Urine Bacteria (None) /hpf Urine Mucus (None) /hpf Urine Opiates Screen (NotDetected) U Methamphetamines Scrn (NotDetected) U Benzodiazepines Scrn (NotDetected) Urine Cocaine Screen (NotDetected) U Marijuana (THC) Screen (NotDetected) 02/17/17 Range/Units 09:01 WBC (3.8-10.6) k/uL RBC (3.80-5.40) m/uL Hct (34.0-46.0) % Neutrophils # (Manual) (1.3-7.7) k/uL Lymphocytes # (Manual) (1.0-4.8) k/uL Nucleated RBCs (0-0) /100 WBC PT (9.0-12.0) sec INR (<1.2) APTT (22.0-30.0) sec ABG pH 7.23 L (7.35-7.45) ABG pCO2 28 L (35-45) mmHg ABG HCO3 11 L (21-25) mmol/L ABG Total CO2 12 L (19-24) mmol/L Carbon Dioxide (22-30) mmol/L BUN (7-17) mg/dL Creatinine (0.52-1.04) mg/dL Glucose (74-99) mg/dL POC Glucose (mg/dL) (75-99) mg/dL Plasma Lactic Acid Alexandr (0.7-2.0) mmol/L Calcium (8.4-10.2) mg/dL Magnesium (1.6-2.3) mg/dL Total Bilirubin (0.2-1.3) mg/dL AST (14-36) U/L ALT (9-52) U/L Alkaline Phosphatase (38-126) U/L Total Creatine Kinase (30-135) U/L CK-MB (CK-2) (0.0-2.4) ng/mL Troponin I (0.000-0.034) ng/mL Total Protein (6.3-8.2) g/dL Albumin (3.5-5.0) g/dL Urine Appearance (Clear) Urine Protein (Negative) Urine Glucose (UA) (Negative) Urine Blood (Negative) Ur Leukocyte Esterase (Negative) Urine RBC (0-5) /hpf Urine WBC (0-5) /hpf Urine WBC Clumps (None) /hpf Ur Squamous Epith Cells (0-4) /hpf Amorphous Sediment (None) /hpf Urine Bacteria (None) /hpf Urine Mucus (None) /hpf Urine Opiates Screen (NotDetected) U Methamphetamines Scrn (NotDetected) U Benzodiazepines Scrn (NotDetected) Urine Cocaine Screen (NotDetected) U Marijuana (THC) Screen (NotDetected) Microbiology - Last 24 Hours (Table) 02/16/17 01:15 Urine Culture - Preliminary Urine,Catheterized 02/16/17 20:32 Blood Culture Gram Stain - Preliminary Blood 02/16/17 20:32 Blood Culture - Final Blood 02/16/17 20:30 Stool for WBCs - Final Stool 02/16/17 20:30 Stool Culture - Preliminary Stool Assessment and Plan Plan: #1 severe sepsis and septic shock likely related to inflammatory process around the graft site broad-spectrum antibiotics are being initiated in the form of IV vancomycin and Zosyn and Levaquin, consolidation or Dr. Rodney has been initiated as well #2 right lower quadrant abdominal pain with inflammatory process possibly early abscess formation cannot be excluded, involving proximity to the graft #3 acute renal failure with severe profound metabolic acidosis #4 right upper lobe pneumonia likely mixed bacterial or gram-negative however a neoplastic process on lung mass cannot be excluded #5 peripheral arterial disease #6 history of DVT and left lower extremity fasciotomy #7 uncontrolled diabetes mellitus and hyperglycemia #8 dyslipidemia hypertension and hypertensive cardiovascular disease Plan and recommendations include #1 aggressive fluid resuscitation with utilization of crystalloids as well as vasopressors along with bicarb drip, dose has been exquisitely escalated #2 continuation off bicarbonate drip #3 broad-spectrum antibiotics as dictated above #4 insulin drip #5 continue vancomycin for staph in clusters and the blood #6 labs chest x-ray blood gas has been reviewed and ordered repeat them in the morning #7 we'll transfer the patient to [facility] ICU patient oxygenation stable spontaneously breathing on 2 L oxygen Care plan discussed with vascular surgery as well as the staff at length critical care time spent over 45 minutes Time with Patient: Greater than 30
[2017-02-17] MEDS ORDERED: MAG HYDROX/AL HYDROX/SIMETH 30 ML CUP PO PRN (12:11)
[2017-02-17 12:18] VITALS: TEMP 97
[2017-02-17 12:26] LABS: Hemoglobin A1C 10.3 % (4.2-6.1)
[2017-02-17 12:29] LABS: Glucose,Whole Blood 124 mg/dL (75-99)
--- NOTE | 2017-02-17 12:54 | HP ---
CHIEF COMPLAINT: [id number] white female with right upper quadrant pain for the last 2 to 3 days with vomiting and lethargy, unable to walk. She has been admitted to the ICU at this time. She has had difficulties. She has a wound V.A.C. on her left lower leg and had a MRSA infection, status post fem-fem bypass done in [facility] in the past 3 to 6 months. She came in with significant fever, was found to have a UTI with sepsis with elevated lactic acid. She is in the ICU at this time. CT scan of the abdomen was ordered which showed possible edema around the graft site where she had the fem-fem bypass done. Discussed the case with Dr. Rodney and the patient for a long period of time about possible transfer due to significant graft infection with life- threatening infection at this time. She needs to be transferred for graft removal down to where the graft was placed, per Dr. Rodney, at [facility]. She is nauseous. She has right lower quadrant pain. She has tenderness of her right abdominal area, significant in nature, with some subcutaneous gas possibly felt in the right upper quadrant. Home medications include: 1. Xanax. 2. Lipitor. 3. Plavix. 4. Feosol. 5. MS Contin. 6. Norvasc. 7. Glucophage. 8. Omeprazole. 9. Percocet. 10. Metoprolol. ALLERGIES: NEGATIVE. REVIEW OF SYSTEMS: PSYCH: She is very anxious, nervous, very upset about everything. Does not really want to go down to [place], but this was recommended at this time. For other review of systems, please see HPI. PAST MEDICAL HISTORY: 1. Diabetes mellitus. 2. Hypertension. 3. Peripheral artery disease. 4. Infection, status post fasciotomy, status post surgery of fem-fem bypass in the left calf with a wound V.A.C. 5. History of ( ) bifemoral graft. 6. Back surgery with lumbar surgery. 7. C-sections. FAMILY HISTORY: Mother negative. Brother with diabetes. PHYSICAL EXAM: She is alert and oriented x3. PSYCH: She appears very anxious, nervous, crying. She is cooperative. CARDIOVASCULAR: Regular rate and rhythm. No murmurs, rubs or gallops. LUNGS: Clear. Breath sounds are equal. Mild wheeze x4. GI: Significant tenderness to palpation with some gas felt in the right upper quadrant of the abdomen. Tenderness along the entire right side of the abdomen down to her groin. Significant redness to the skin and tenderness along her lower abdominal folds and a midline sore about 2 inches, suprapubic, superficial ulceration. She has severe maceration under the abdominal folds also. MUSCULOSKELETAL: Range of motion full x4. She has a wound V.A.C. on the left tibia. EKG shows sinus rhythm. Chest x-ray shows no acute infiltrate; density in the lower border. Possible pneumonia or lung mass or consolidations. CT unremarkable. CT of the chest, abdomen was ordered, as mentioned above. Labs are reviewed. DISCUSSION: ICU note of Dr. Frausto is reviewed. Consultation with Dr. Rodney on the phone for 30 minutes reviewed. ( ) lactic acids. Elevated liver enzymes. ASSESSMENT: 1. Severe sepsis with septic shock due to inflammation around the graft site. Vancomycin, Zosyn and Levaquin are ordered. Dr. Rodney recommends transfer; will do at this time. 2. Right lower quadrant abdominal pain with severe maceration and candidiasis of the skin; possible abscess formation around the graft/ 3. Acute on chronic renal failure. 4. Profound metabolic acidosis. 5. Right upper lobe pneumonia will have to be treated. 6. Peripheral artery disease. 7. Left lower extremity chronic wound with fasciotomy. 8. History of deep vein thrombosis. 9. Uncontrolled diabetes mellitus. 10. Dyslipidemia. 11. Hypertension. PLAN: IV fluids. Triple IV antibiotics. Bicarbonate drip. Transfer down to [place] for possible graft removal. Patient has life-threatening illness due to severe sepsis. [facility]
[2017-02-17 13:22] LABS: Troponin I 0.104 ng/mL (0.000-0.034)
[2017-02-17 13:23] LABS: Creatine Kinase MB 74.5 ng/mL (0.0-2.4)
[2017-02-17 13:30] LABS: Creatine Kinase MB 66.5 ng/mL (0.0-2.4); Troponin I 0.133 ng/mL (0.000-0.034)
--- NOTE | 2017-02-17 14:51 | US ---
EXAMINATION TYPE: US abdomen complete DATE OF EXAM: 02/17/2017 COMPARISON: NONE CLINICAL HISTORY: abdominal abscess in relation to patients axillofemoral bypass graft. EXAM MEASUREMENTS: Liver Length: 18.6 cm Gallbladder Wall: 0.3 cm CBD: 0.4 cm Right Kidney: 12.3 x 6.4 x 5.7 cm Pancreas: not visualized Liver: part imaged appears wnl Gallbladder: part imaged appears wnl Evidence for sonographic Herman's sign: no CBD: part imaged appears wnl Right Kidney: part imaged appears wnl Area of concern and pain did appear to follow the axillofemoral bypass graft. There was heterogenous hypoechoic appearance around the bypass graft that did no display color flow. IMPRESSION: There is vascular flow in the bypass graft. There is a 10 to 15 mm ring of decreased echo genicity around the graft consistent with complex fluid and inflammatory reaction. There was no sign of pseudoaneurysm.
[2017-02-17] MEDS ORDERED: HYDROmorphone 1 MG/ML 1 ML SYRINGE ONE (15:59)
[2017-02-17] MEDS ORDERED: HYDROmorphone 1 MG/ML 1 ML SYRINGE IVP STA (16:02)
[2017-02-17 16:14] VITALS: PULSE 101; RESP 19
[2017-02-17 16:23] LABS: Glucose,Whole Blood 93 mg/dL (75-99)
[2017-02-18] MEDS ORDERED: VANCOMYCIN 1,250 MG in SODIUM CHLORIDE 0.9% 250 ML IVPB ONE (07:00)
--- NOTE | 2017-02-18 08:21 | CONS ---
DATE OF SERVICE: 02/17/2017 REASON FOR CONSULTATION: Sepsis, bacteremia and possible ( ) infection. HISTORY OF PRESENT ILLNESS: The patient is a 51-year-old female with past medical history significant for uncontrolled diabetes and heroin abuse, peripheral vascular disease. Patient is status post bifemoral bypass graft and left leg fasciotomy done at [facility] by Dr. Olmstead ). Patient also has chronic wound to the left leg and being treated with wound and under the care of Dr. Rodney. Patient presented to the [facility] 02/16/2017 with chief complaint of abdominal pain. Apparently the pain has been on the right side and lower abdominal area described to be sharp with some radiation across the lower abdomen to the left side with intensity almost 10 out of 10 and felt nauseated with it with an episode of vomiting but no diarrhea or any constipation. With these symptoms, the patient has been evaluated by the ER physician. The patient did have CT of the abdomen and pelvis which did show some evidence of atelectasis and a bypass graft noted with some ( ) density on the right side of the abdomen around the graft that could lead to infectious process. There was ( ) around the graft. Patient did have blood culture done which did now show any Gram-positive cocci in clusters. She has been treated with Vanco and Zosyn. ID was consulted for further recommendations regarding antibiotic therapy. Patient has been evaluated by Vascular Surgery from Dr. Rodney who recommends the patient to be transferred to [facility] to be evaluated by her Vascular Surgeon. Patient is currently hypertensive requiring vasopressors, but not only ( ). Patient has been lying comfortably, now intubated on the vent. REVIEW OF SYSTEMS: CONSTITUTIONAL: Positive for weakness and some chills, but no fever has been recorded here in the hospital. EYES: No complaint. ENT: No complaint. RESPIRATORY: Some shortness of breath. No cough. CARDIOVASCULAR: No complaint. GENITOURINARY: No complaint. GASTROINTESTINAL: As per HPI. MUSCULOSKELETAL: No complaint. INTEGUMENTARY: As per HPI. PSYCHOLOGICAL: No complaint. ENDOCRINE: No complaint. NEUROLOGICAL: No complaint. PAST MEDICAL HISTORY: Significant for hypertension, hyperlipidemia, diabetes mellitus, peripheral vascular disease, blood clot in the left lower leg, left leg infection with MRSA. PAST SURGICAL HISTORY: Back surgery, , ( ) bypass graft and left leg fasciotomy. SOCIAL HISTORY: Positive for heroin abuse. No drinking or smoking. FAMILY HISTORY: No pertinent findings noticed. ALLERGIES: No known drug allergies. Medications include the patient is currently on Tylenol, Maalox, heparin, Dilaudid, Humalog, Levofloxacin, vancomycin pharmacy to dose, pip-tazobactam, Humalog, Narcan, Zofran. On examination: Blood pressure 100/48 with pulse 95. Temperature 97. She is 97% on 2-L nasal cannula. General description is a middle aged female lying in bed in no distress. No tachypnea or accessory muscle of respiration use. HEENT examination shows no pallor or scleral icterus. oral mucous membrane is dry. NECK: Trachea is central. No thyromegaly. LUNGS: Unlabored breathing. Clear to auscultation anteriorly. HEART: S1, S2 regular rate and rhythm. ABDOMEN: Soft, mildly tender in the right lower quadrant area. Did have a blister in the abdominal fold with surrounding redness. EXTREMITIES: No edema feet. SKIN: No rash or mass palpable. NEUROLOGICAL: Patient is awake, alert, oriented x3. Mood and affect normal. LABS: Hemoglobin is 12.1, white count of 12.7, admission white count was 13.9. BUN 36, creatinine 3.93. Liver enzymes are slightly elevated. Lactic acid is elevated. CKs elevated. Blood culture with Gram-positive cocci. DIAGNOSTIC IMPRESSION AND PLAN: 1. Patient admitted to the hospital with abdominal pain and patient did have evidence of sepsis with infection of the ( ) graft in patient who does have history bifemoral bypass graft with previous history of MRSA infection of the left leg likely representing a MRSA infection of the graft. 2. Patient did have evidence of renal insufficiency. PLAN: 1. The patient will continue on vancomycin pharmacy to dose while watching kidney function closely. 2. ( ) discontinue, Zosyn continued while culture finalizes and if no Gram - negative Zosyn can be discontinued. 3. Will transfer to [facility] to be evaluated by her surgeon as ( ) will help in healing this infection. 4. Blood culture will be repeated ( ) bacteremia. 5. Will follow up on clinical condition and cultures to further adjust medications if needed. Thank you for this consultation. I will follow this patient along with you. SHERRY
[2017-02-18] MEDS ORDERED: LEVOFLOXACIN 750MG-D5W PMX 750 MG in DEXTROSE/WATER 1 150ML.BAG IVPB SCH (23:00)
== END 2017-02-17 16:47 | disposition short-term general hospital (02) | DRG 871 ==
LOC: EC 18:29 → 6ICU 02-17 00:12
PROVIDERS: ADMIT Family Medicine; ATTEND Family Medicine
PROC: 02HV33Z Insertion of Infusion Device into Superior Vena Cava, Percutaneous Approach (ICD-10-PCS; principal; 2017-02-17)
PROC: 03HY32Z Insertion of Monitoring Device into Upper Artery, Percutaneous Approach (ICD-10-PCS; 2017-02-17)
PROC: 4A133B1 Monitoring of Arterial Pressure, Peripheral, Percutaneous Approach (ICD-10-PCS; 2017-02-17)
PROC: 4A133J1 Monitoring of Arterial Pulse, Peripheral, Percutaneous Approach (ICD-10-PCS; 2017-02-17)
DX: A41.9 Sepsis, unspecified organism (principal); J18.9 Pneumonia, unspecified organism; R65.21 Severe sepsis with septic shock; E87.2 Acidosis; N17.9 Acute kidney failure, unspecified; T82.7XXA Infection and inflammatory reaction due to other cardiac and vascular devices, implants and grafts, initial encounter; E11.22 Type 2 diabetes mellitus with diabetic chronic kidney disease; I13.10 Hypertensive heart and chronic kidney disease without heart failure, with stage 1 through stage 4 chronic kidney disease, or unspecified chronic kidney disease; B37.2 Candidiasis of skin and nail; E86.0 Dehydration; N39.0 Urinary tract infection, site not specified; J98.11 Atelectasis; E11.51 Type 2 diabetes mellitus with diabetic peripheral angiopathy without gangrene; E11.65 Type 2 diabetes mellitus with hyperglycemia; E78.5 Hyperlipidemia, unspecified; F11.10 Opioid abuse, uncomplicated; R91.1 Solitary pulmonary nodule; N18.9 Chronic kidney disease, unspecified; Z79.84 Long term (current) use of oral hypoglycemic drugs; Z79.02 Long term (current) use of antithrombotics/antiplatelets; Z79.899 Other long term (current) drug therapy; Z86.718 Personal history of other venous thrombosis and embolism; Z87.891 Personal history of nicotine dependence; Z86.14 Personal history of Methicillin resistant Staphylococcus aureus infection; Z83.3 Family history of diabetes mellitus
CPT/HCPCS: 36415; 36600; 70450; 71010; 71020; 74176; 76700; 76705; 80053; 80306; 80320; 81001; 82140; 82150; 82272; 82550; 82553; 82805; 83036; 83520; 83605; 83690; 83735; 84484; 85025; 85610; 85730; 87040; 87045; 87046; 87077; 87086; 87186; 89055; 93005